=== PATIENT | male | born 1940 | race Caucasian/White ===

== ENCOUNTER 2018-10-07 22:20 | Inpatient (IN) | payer MEDICARE, OTHER ==
--- NOTE | 2018-10-07 22:53 | ED PDOC ---
Arrival/HPI - General Historian: Patient - History of Present Illness Narrative History of Present Illness (Text): 10/07/18 22:52 Patient is an 78-year-old M, family at bedside with permission of the Patient. Past medical history of previous CO (40 years ago), HTN, and Diabetes Mellitus (on Metformin), and arrhythmia (Patient's family states Patient was cardioverted in the past) who presents with syncope. Patient states that about 30 minutes prior to arrival to the ED, he was with his family when he felt light-headed, felt "wobbly" and that he was about to collapse. Patient states that his family caught him, and that he did not fall and/or hit his head. Patient also denies losing consciousness, and states he "never blacked out." Patient reports that he recently moved from [place], where he was being treated by a Lift Mechanic for his previous CO. Patient otherwise denies nausea, vomiting, fever, chills, chest pain, shortness of breath, numbness/tingling in lower extremities, weakness, and/or blurred vision. Time/Duration: Prior to Arrival, 1/2 hour Symptom Onset: Sudden Symptom Course: Improving <Isela Reynoso - Last Filed: 10/08/18 04:37> <Aditya Ceballos - Last Filed: 10/08/18 05:25> - General Chief Complaint: Syncope Past Medical History - Cardiac Hx Angina: Yes Hx CO: Yes (2017) Hx Hypertension: Yes Other/Comment: PSVT - Pulmonary Hx Respiratory Disorders: No - Neurological Hx Neurological Disorder: No - Renal Hx Renal Disorder: No - Endocrine/Metabolic Hx Diabetes Mellitus Type 2: Yes - Hematological/Oncological Hx Blood Disorders: No - Integumentary Hx Dermatological Disorder: No - Musculoskeletal/Rheumatological Hx Musculoskeletal Disorders: No - Gastrointestinal Hx Gastrointestinal Disorders: No - Genitourinary/Gynecological Hx Genitourinary Disorders: No - Psychiatric Hx Psychophysiologic Disorder: No Hx Substance Use: No - Surgical History Other/Comment: Back sx 30 years ago for lump removal. Skin sx 5 years ago d/t sunburn - Anesthesia Hx Anesthesia: Yes <Isela Reynoso - Last Filed: 10/08/18 04:37> Family/Social History Family/Social History: Unknown Family HX Smoking Status: Former Smoker Hx Alcohol Use: No Hx Substance Use: No <Isela Reynoso - Last Filed: 10/08/18 04:37> Allergies/Home Meds <Isela Reynoso - Last Filed: 10/08/18 04:37> <Aditya Ceballos - Last Filed: 10/08/18 05:25> Allergies/Adverse Reactions: Allergies atorvastatin [From Lipitor] Allergy (Verified 10/07/18 22:22) RASH Home Medications: Home Meds Medication Instructions Recorded Confirmed Carvedilol [Coreg] 1 tab PO DAILY 10/08/18 10/08/18 Furosemide [Lasix] 1 tab PO DAILY 10/08/18 10/08/18 Pantoprazole Sodium [Protonix] 1 tab PO QAM 10/08/18 10/08/18 Pravastatin Sodium [Pravachol] 1 tab PO DAILY 10/08/18 10/08/18 RX: Losartan [Cozaar] 1 tab PO DAILY 10/08/18 10/08/18 RX: MetFORMIN ER [Glucophage XR] 1 tab PO DAILY 10/08/18 10/08/18 Physical Exam Vital Signs Reviewed: Yes Vital Signs Temp Pulse Resp BP Pulse Ox 10/07/18 22:28 97.5 F L 147 H 19 106/82 96 Temperature: Afebrile Blood Pressure: Normal Pulse: Tachycardic Respiratory Rate: Normal Appearance: Positive for: Comfortable Mental Status: Positive for: Alert and Oriented X 3 - Systems Exam Head: Present: Atraumatic, Normocephalic Pupils: Present: PERRL Extroacular Muscles: Present: EOMI Conjunctiva: Present: Normal Mouth: Present: Moist Mucous Membranes Neck: Present: Normal Range of Motion Respiratory/Chest: Present: Clear to Auscultation, Good Air Exchange. No: Respiratory Distress, Accessory Muscle Use Cardiovascular: Present: Normal S1, S2, Irregular Rhythm, Tachycardic Abdomen: Present: Normal Bowel Sounds. No: Tenderness, Distention, Peritoneal Signs Upper Extremity: Present: Normal Inspection. No: Cyanosis, Edema Lower Extremity: Present: Normal Inspection Neurological: Present: GCS=15, CN II-XII Intact, Speech Normal Skin: Present: Warm, Dry, Normal Color. No: Rashes Psychiatric: Present: Alert, Oriented x 3, Normal Insight, Normal Concentration <Isela Reynoso - Last Filed: 10/08/18 04:37> Vital Signs Temp Pulse Resp BP Pulse Ox 10/07/18 22:28 97.5 F L 147 H 19 106/82 96 <Aditya Ceballos - Last Filed: 10/08/18 05:25> Medical Decision Making ED Course and Treatment: 10/08/18 00:48 IMPRESSION Patient is an 78-year-old M with past medical history of previous CO (40 years ago), HTN, arrhythmia (Patient states he was cardioverted in the past) and Diabetes Mellitus (on Metformin) who presents with syncope. ASSESSMENT / PLAN Tachycardia / ACS Rule-out / PE rule-out - Troponin x1 negative - CXR unremarkable for active disease (read by me); pending official report - EKG obtained, abnormal, tachycardia Meds given while in ED: Cardizem 10mg IVP STAT Cardizem 10mg IVP STAT (second dose) Cardizem drip started Lopressor 5mg IVP Amiodarone - D-Dimer w.n.l - CTA Mild aneurysmal ascending aorta measuring 4.1 cm. Normal enhancement of the main pulmonary artery and right and left pulmonary arteries. Normal enhancement of the bilateral peripheral pulmonary arteries. There is no demonstrated pulmonary embolism. Normal thoracic aorta and visualized great vessels. There is no demonstrated aortic dissection. Moderately enlarged heart and normal pericardium. Normal mediastinum. Normal hilar regions. Normal visualized trachea and bronchi. Mild central pulmonary venous congestion. Normal pleura. Normal chest wall structures. Moderate diffuse spondylosis. Normal visualized upper abdomen. 10/08/18 02:32 IMPRESSION: No demonstrated pulmonary embolism or arterial dissection. Cardiomegaly. Mild central pulmonary venous congestion. Bilateral basilar atelectatic/hypoventilatory pulmonary changes. - PT/PTT w.n.l - CBC w.n.l - CMP w.n.l - Lab Interpretations I have reviewed the lab results: Yes - RAD Interpretation Radiology Orders: 10/07/18 22:46 CHEST PORTABLE [RAD] Stat - Medication Orders Current Medication Orders: Sodium Chloride (Sodium Chloride 0.9%) 100 mls @ 150 mls/hr IV .Q40M [facility] <Isela Reynoso - Last Filed: 10/08/18 04:37> ED Course and Treatment: Patient Seen with Resident: In agreement with resident note which contains more details about the patient. Patient seen and evaluated with resident. Came up with plan and treatment together. case d/w dr chapman plant operations manager will start amiodorone Pt, whose past medical history includes CO, hypertension, diabetes, who presented for syncope. 10/08/18 00:40 CTA Chest: Mild aneurysmal ascending aorta measuring 4.1 cm. Normal enhancement of the main pulmonary artery and right and left pulmonary arteries. Normal enhancement of the bilateral peripheral pulmonary arteries. There is no demonstrated pulmonary embolism. Normal thoracic aorta and visualized great vessels. There is no demonstrated aortic dissection. Moderately enlarged heart and normal pericardium. Normal mediastinum. Normal hilar regions. Normal visualized trachea and bronchi. Mild central pulmonary venous congestion. Normal pleura. Normal chest wall structures. Moderate diffuse spondylosis. Normal visualized upper abdomen. IMPRESSION: No demonstrated pulmonary embolism or arterial dissection. Cardiomegaly. Mild central pulmonary venous congestion. Bilateral basilar atelectatic/hypoventilatory pulmonary changes. Electronically signed on Oct 08, 2018 12:39:45 AM EST by: Christa Marvin M.D., Certified by [employer], MSK, Neuroradiology 10/08/18 05:23 - Lab Interpretations Lab Results: Troponin I < 0.01 ng/mL 10/07/18 22:56 Total Bilirubin 0.3 mg/dL (0.2-1.3) 10/07/18 22:56 AST 25 U/L (17-59) 10/07/18 22:56 ALT 33 U/L (7-56) 10/07/18 22:56 Alkaline Phosphatase 57 U/L (38-126) 10/07/18 22:56 Total Protein 7.6 g/dL (5.8-8.3) 10/07/18 22:56 Albumin 4.3 g/dL (3.0-4.8) 10/07/18 22:56 Globulin 3.3 gm/dL 10/07/18 22:56 Albumin/Globulin Ratio 1.3 (1.1-1.8) 10/07/18 22:56 I have reviewed the lab results: Yes - RAD Interpretation Radiology Orders: 10/07/18 22:46 CHEST PORTABLE [RAD] Stat Engine Dispatcher: Radiologist - EKG Interpretation Interpreted by ED Physician: Yes Type: 12 lead EKG - Medication Orders Current Medication Orders: Sodium Chloride (Sodium Chloride 0.9%) 1,000 mls @ 150 mls/hr IV .Q6H40M [facility] Last Admin: 10/07/18 23:04 Dose: 150 mls/hr eMAR Start Stop Document 10/07/18 23:04 EB (Rec: 10/07/18 23:05 [place] [facility] [id number] Intravenous Solution Start Date 10/07/18 Start Time 23:05 End Date 10/08/18 End time 05:45 Total Infusion Time 400 <Aditya Ceballos - Last Filed: 10/08/18 05:25> - PA / PLEATER / Resident Statement / has reviewed & agrees with the documentation as recorded. / has examined the patient and agrees with the treatment plan. <Aditya Ceballos - Last Filed: 10/08/18 05:25> Disposition/Present on Arrival - Present on Arrival Any Indicators Present on Arrival: Yes History of DVT/PE: No History of Uncontrolled Diabetes: No Urinary Catheter: No History of Decub. Ulcer: No History Surgical Site Infection Following: None - Disposition Have Diagnosis and Disposition been Completed?: Yes Disposition Time: 03:30 (Persistent; H/O SVT) Patient Plan: ICU <Isela Reynoso - Last Filed: 10/08/18 04:37> - Present on Arrival Any Indicators Present on Arrival: No - Disposition Have Diagnosis and Disposition been Completed?: Yes <Aditya Ceballos - Last Filed: 10/08/18 05:25> - Disposition Diagnosis: Tachycardia Disposition: HOSPITALIZED Patient Problems: Current Active Problems Problem Status Onset Tachycardia Acute Condition: CRITICAL
[2018-10-07] MEDS ORDERED: Sodium Chloride 0.9% 1,000 ML IV SCH (23:00)
[2018-10-07 23:03] LABS: BASO # 0.08 K/mm3 (0.0-2.0); BASO % 0.8 % (0.0-3.0); EOS # 0.2 (0.0-0.7); EOS % 2.4 % (1.5-5.0); GRAN # 5.39 (1.4-6.5); GRAN % 53.8 % (50.0-68.0); HEMOGLOBIN 13.9 g/dL (14.0-18.0); LYMPH # 3.2 (1.2-3.4); LYMPH % 32.2 % (22.0-35.0); MEAN CELL VOLUME 87.4 fl (80.0-105.0); MEAN CORPUSCULAR HEMOGLOBIN 29.1 pg (25.0-35.0); MEAN CORPUSCULAR HGB CONC 33.3 g/dl (31.0-37.0); MEAN PLATELET VOLUME 9.4 fl (7.0-11.0); MONO # 1.1 (0.1-0.6); MONO % 10.8 % (1.0-6.0); RBC 4.77 10^6/uL (3.5-6.1)
[2018-10-07 23:13] LABS: ALB/GLOB RATIO 1.3 (1.1-1.8); ALBUMIN 4.3 g/dL (3.0-4.8); ALT/SGPT 33 U/L (7-56); AST/SGOT 25 U/L (17-59); BLOOD UREA NITROGEN 19 mg/dL (7-21); CALCIUM 9.3 mg/dL (8.4-10.5); GFR NON-AFRICAN AMERICAN > 60
[2018-10-07 23:23] LABS: TROPONIN I < 0.01 ng/mL
[2018-10-07] MEDS ORDERED: Iohexol 350 MG/100 ML VIAL ONE (23:57)
[2018-10-08 00:09] LABS: D DIMER < 200 ng/mlDDU (0-243); INR 0.92; PARTIAL THROMBOPLASTIN TIME 26.2 Seconds (25.1-36.5); PROTHROMBIN TIME 10.5 SECONDS (9.4-12.5)
[2018-10-08] MEDS ORDERED: diltiaZEM IVPB 100mg in NS 100 ML IV PRN (00:35)
[2018-10-08] MEDS ORDERED: Metoprolol 1 mg/ml Inj IVP ONE (01:16)
[2018-10-08] MEDS ORDERED: Amiodarone 150 mg/D5W 100 ml 150 MG/100 ML BAG IVPB ONE ×2 (01:54→08:27)
[2018-10-08] MEDS ORDERED: Amiodarone 360 mg/D5W 200 ml 360 MG/200 ML BAG IV SCH ×2 (02:30→08:30)
--- NOTE | 2018-10-08 03:47 | CP.PCM.CON ---
<Kwan Huffman - Last Filed: 10/08/18 04:04> History of Present Illness - History of Present Illness History of Present Illness: PGY-2 ICU consult note for Dr Wheat Mr France is a 78 year male with a PMHx of SVT requiring cardioversion (08/2017), NIDM2, HTN, HLD, SD 30 years ago, LE edema who presents to the ED for pre-syncope. His daughter and grand-daughter were at bedside. He was at a [employer] alliance party late last evening where he got up to go to the bathroom - however he felt "whoozy" and had to immediately sit down on the floor. He stated he felt palpitations. He was given some orange juice as family members were concerned his symptoms could be related to his diabetes. EMS was called and he was brought to our ER and found to have a heart rate in the 140s. He denied chest pain, LOC, dizziness, room-spinning sensation, fever, GI symptoms. PMHx: SVT requiring cardioversion (08/2017), NIDM2, HTN, HLD, SD 30 years ago, LE edema PSHx: denies Allergies: atorvastatin - body cramps Home Meds: metformin 1000mg po bid, dilacor xr 180mg po qd, coreg 25mg po bid, lasix 20mg po qd, pravastatin 20mg po hs, protonix 40mg po qd, losartan 50mg po qd SocialHx: 10 pack year smoking hx - no longer smoking, no alcohol use, no illicits, lives with , recently moved form [place] FamHx: unknown Review of Systems - Review of Systems All systems: reviewed and no additional remarkable complaints except (as stated in HPI) Past Patient History - Past Social History Smoking Status: Former Smoker - CARDIAC Hx Angina: Yes Hx Heart Attack: Yes (2016) Hx Hypertension: Yes Other/Comment: PSVT - PULMONARY Hx Respiratory Disorders: No - NEUROLOGICAL Hx Neurological Disorder: No - RENAL Hx Chronic Kidney Disease: No - ENDOCRINE/METABOLIC Hx Diabetes Mellitus Type 2: Yes - HEMATOLOGICAL/ONCOLOGICAL Hx Blood Disorders: No - INTEGUMENTARY Hx Dermatological Problems: No - MUSCULOSKELETAL/RHEUMATOLOGICAL Hx Musculoskeletal Disorders: No - GASTROINTESTINAL Hx Gastrointestinal Disorders: No - GENITOURINARY/GYNECOLOGICAL Hx Genitourinary Disorders: No - PSYCHIATRIC Hx Psychophysiologic Disorder: No Hx Substance Use: No - SURGICAL HISTORY Other/Comment: Back sx 30 years ago for lump removal. Skin sx 5 years ago d/t sunburn - ANESTHESIA Hx Anesthesia: Yes Meds Allergies/Adverse Reactions: Allergies Allergy/AdvReac Type Severity Reaction Status Date / Time atorvastatin [From Lipitor] Allergy RASH Verified 10/07/18 22:22 - Medications Medications: Current Medications Sodium Chloride (Sodium Chloride 0.9%) 1,000 mls @ 150 mls/hr IV .Q6H40M [facility] Last Admin: 10/07/18 23:04 Dose: 150 mls/hr Physical Exam - Constitutional Appears: Well, Non-toxic, No Acute Distress - Head Exam Head Exam: ATRAUMATIC, NORMAL INSPECTION - Eye Exam Eye Exam: EOMI, Normal appearance, PERRL. absent: Scleral icterus - ENT Exam ENT Exam: Mucous Membranes Moist - Respiratory Exam Respiratory Exam: Clear to Auscultation Bilateral, NORMAL BREATHING PATTERN. absent: Rales, Rhonchi, Wheezes - Cardiovascular Exam Cardiovascular Exam: Tachycardia, REGULAR RHYTHM, +S1, +S2. absent: JVD, Systolic Murmur - GI/Abdominal Exam GI & Abdominal Exam: Normal Bowel Sounds, Soft. absent: Distended, Firm, Tenderness - Extremities Exam Extremities exam: Positive for: normal capillary refill, normal inspection, pedal edema, pedal pulses present Additional comments: 1+ b/l - Neurological Exam Neurological exam: Alert, Oriented x3 - Psychiatric Exam Psychiatric exam: Normal Affect, Normal Mood - Skin Skin Exam: Intact, Normal Color, Warm Results - Vital Signs Recent Vital Signs: Last Vital Signs Temp 98.1 F 10/08/18 03:16 Pulse 149 H 10/08/18 03:23 Resp 20 10/08/18 03:23 BP 103/63 10/08/18 03:23 Pulse Ox 95 10/08/18 03:23 - Labs Result Diagrams: 10/07/18 22:56 10/07/18 22:56 Labs: Laboratory Results - last 24 hr 10/07/18 10/07/18 10/07/18 22:56 22:56 23:27 WBC 10.0 RBC 4.77 Hgb 13.9 L Hct 41.7 L MCV 87.4 MCH 29.1 MCHC 33.3 RDW 13.0 Plt Count 222 MPV 9.4 Gran % 53.8 Lymph % (Auto) 32.2 [place] % (Auto) 10.8 H Eos % (Auto) 2.4 Baso % (Auto) 0.8 Gran # 5.39 Lymph # (Auto) 3.2 [place] # (Auto) 1.1 H Eos # (Auto) 0.2 Baso # (Auto) 0.08 PT 10.5 INR 0.92 APTT 26.2 D-Dimer, Quantitative < 200 Sodium 138 Potassium 4.5 Chloride 103 Carbon Dioxide 22 Anion Gap 17 BUN 19 Creatinine 0.9 Est GFR ( Amer) > 60 Est GFR (Non-Af Amer) > 60 Random Glucose 176 H Calcium 9.3 Magnesium 1.9 Total Bilirubin 0.3 AST 25 ALT 33 Alkaline Phosphatase 57 Lactate Dehydrogenase 353 Total Creatine Kinase 42 Troponin I < 0.01 Total Protein 7.6 Albumin 4.3 Globulin 3.3 Albumin/Globulin Ratio 1.3 Assessment & Plan - Assessment and Plan (Free Text) Plan: Mr [place] is a 78 year male with a PMHx of SVT requiring cardioversion ( 7), NIDM2, HTN, HLD, SD 30 years ago, LE edema who presents to the ED for pre- syncope: Cardiovascular -(1) SVT with HR in 140s who is hemodynamically stable; (2) cardiomegaly as seen on CTA 10/08/18 -In ED given: cardizem 10mg ivp x2, amio 150mg ivp once, lopressor 5mg ivp once, adenosine 6mg ivp once, attempted vagal massage * there was no improvement in HR -consult cardiology, Dr Cleary -holding off on cardioversion for now as patient is w/o symptoms and hemodynamically stable -troponin x1 negative, f/u echo, repeat ekg in AM, lipid panel, Hgba1c, probnp -d-dimer was negative - CTA was performed 10/08/18 which did not show PE -start 81mg po qd -hold home coreg, losartan and lasix due to mild hypotension (100s/70s) Endocrine -NIDD2 -glucose in 170s -f/u hgba1c -accuchecks achs with RISS -medium coverage -hold home metformin for now Pulmonary -mild central pulmonary venous congestion as seen on CTA 10/08/18 -no complaints of difficulty breathing and saturating well on NC PPx -SCDs contraindicated 2/2 to 1+ pedal edema b/l Seen and discussed with Dr Wheat <Jose M Wheat - Last Filed: 10/08/18 06:31> Meds - Medications Medications: Current Medications Aspirin (Aspirin Chewable) 81 mg PO DAILY [facility] Dextrose (Dextrose 50% Inj) 0 ml IV STAT PRN; Protocol PRN Reason: Hypoglycemia Protocol Sodium Chloride (Sodium Chloride 0.9%) 1,000 mls @ 150 mls/hr IV .Q6H40M [facility] Last Admin: 10/07/18 23:04 Dose: 150 mls/hr Dextrose (Dextrose 5% In Water 1000 Ml) 1,000 mls @ 0 mls/hr IV .Q0M PRN; Protocol PRN Reason: Hypoglycemia Protocol Insulin Human Regular (Humulin R Med) 0 units SC ACHS [facility]; Protocol Results - Vital Signs Recent Vital Signs: Last Vital Signs Temp 98.5 F 10/08/18 04:10 Pulse 149 H 10/08/18 04:10 Resp 18 10/08/18 04:10 BP 103/63 10/08/18 03:43 Pulse Ox 95 10/08/18 03:43 - Labs Result Diagrams: 10/07/18 22:56 10/07/18 22:56 Labs: Laboratory Results - last 24 hr 10/07/18 10/07/18 10/07/18 22:56 22:56 23:27 WBC 10.0 RBC 4.77 Hgb 13.9 L Hct 41.7 L MCV 87.4 MCH 29.1 MCHC 33.3 RDW 13.0 Plt Count 222 MPV 9.4 Gran % 53.8 Lymph % (Auto) 32.2 [place] % (Auto) 10.8 H Eos % (Auto) 2.4 Baso % (Auto) 0.8 Gran # 5.39 Lymph # (Auto) 3.2 [place] # (Auto) 1.1 H Eos # (Auto) 0.2 Baso # (Auto) 0.08 PT 10.5 INR 0.92 APTT 26.2 D-Dimer, Quantitative < 200 Sodium 138 Potassium 4.5 Chloride 103 Carbon Dioxide 22 Anion Gap 17 BUN 19 Creatinine 0.9 Est GFR ( Amer) > 60 Est GFR (Non-Af Amer) > 60 Random Glucose 176 H Calcium 9.3 Magnesium 1.9 Total Bilirubin 0.3 AST 25 ALT 33 Alkaline Phosphatase 57 Lactate Dehydrogenase 353 Total Creatine Kinase 42 Troponin I < 0.01 Total Protein 7.6 Albumin 4.3 Globulin 3.3 Albumin/Globulin Ratio 1.3 Attending/Attestation - Attestation I have personally seen and examined this patient.: Yes I have fully participated in the care of the patient.: Yes I have reviewed all pertinent clinical information: Yes Notes (Text): Patient seen and examined with the resident, agree with above Symptoms with "whooziness" while at [employer] today and lethargy Noted to have monomorphic wide complex tachycardia; No hypotension/AMS/shock/chest pain/acute heart failure Vagal maneuvers without relief. Administered Adenosine 6mg IV x1 dose with improvement of HR from 146 --> 113 will continue to monitor hemodynamics in the ICU setting with a Cardiology evaluation Plan of care made aware to the patient and has family members at bedside Further diagnostics and/or intervention as hospital course progresses.
[2018-10-08] MEDS ORDERED: Dextrose 50% SYRINGE Inj (50 ml) IV PRN (03:48)
[2018-10-08 05:30] VITALS: BMI 21.7
[2018-10-08 07:07] LABS: BASO # 0.04 K/mm3 (0.0-2.0); BASO % 0.4 % (0.0-3.0); EOS # 0.1 (0.0-0.7); EOS % 1.3 % (1.5-5.0); GRAN # 5.67 (1.4-6.5); GRAN % 59.1 % (50.0-68.0); HEMOGLOBIN 13.4 g/dL (14.0-18.0); LYMPH # 2.7 (1.2-3.4); LYMPH % 28.5 % (22.0-35.0); MEAN CELL VOLUME 86.7 fl (80.0-105.0); MEAN CORPUSCULAR HEMOGLOBIN 28.7 pg (25.0-35.0); MEAN CORPUSCULAR HGB CONC 33.1 g/dl (31.0-37.0); MEAN PLATELET VOLUME 9.3 fl (7.0-11.0); MONO % 10.7 % (1.0-6.0); RBC 4.67 10^6/uL (3.5-6.1); RED CELL DISTRIBUTION WIDTH 13.1 % (11.5-14.5); WHITE BLOOD COUNT 9.6 10^3/uL (4.5-11.0)
[2018-10-08 07:17] LABS: ALB/GLOB RATIO 1.2 (1.1-1.8); ALBUMIN 3.8 g/dL (3.0-4.8); ALT/SGPT 26 U/L (7-56); AST/SGOT 24 U/L (17-59); BLOOD UREA NITROGEN 14 mg/dL (7-21); CALCIUM 8.5 mg/dL (8.4-10.5); GFR NON-AFRICAN AMERICAN > 60; HDL CHOLESTEROL 46 mg/dL (29-60)
[2018-10-08 07:23] LABS: B-TYPE NATRIURETIC PEPTIDE 1530 pg/mL (0-450)
[2018-10-08 07:26] LABS: LDL CHOLESTEROL 74 mg/dL (0-129)
[2018-10-08] MEDS ORDERED: Digoxin 500 mcg/2ml (0.5 mg/2ml) Inj IVP STA (07:41)
[2018-10-08 07:54] VITALS: PULSE 152
[2018-10-08] MEDS: Insulin Reg-MEDIUM-Coverage SC SCH ×4 (08:47→22:17)
--- NOTE | 2018-10-08 09:27 | CT ---
Date of service: 10/08/2018 PROCEDURE: CT Chest with contrast (Pulmonary Angiogram) HISTORY: rule-out PE COMPARISON: None available. TECHNIQUE: Axial computed tomography images were obtained of the chest in the pulmonary arterial phase of enhancement. Coronal and sagittal reformatted images were created and reviewed. Intravenous contrast dose: 96 mL of Omni 350 Radiation dose: Total exam DLP = 498.34 mGy-cm. This CT exam was performed using one or more of the following dose reduction techniques: Automated exposure control, adjustment of the mA and/or kV according to patient size, and/or use of iterative reconstruction technique. FINDINGS: PULMONARY ARTERIES: Unremarkable. No pulmonary embolism. AORTA: No acute findings. No thoracic aortic aneurysm. Aortic calcifications LUNGS: Minimal interstitial changes PLEURAL SPACES: Unremarkable. No effusion or pneumothorax. HEART: Unremarkable. No cardiomegaly. No significant pericardial effusion. LYMPH NODES: No lymphadenopathy. BONES, CHEST WALL: Unremarkable. No fracture or destructive lesion OTHER FINDINGS: The report concurs with the preliminary [facility] report IMPRESSION: Unremarkable CT pulmonary angiogram. No pulmonary embolus.
[2018-10-08] MEDS ORDERED: Midazolam 2 MG/2 ML VIAL IVP ONE ×2 (09:47→10:47)
--- NOTE | 2018-10-08 09:54 | CARD ---
APPROVED REPORT Date of service: 10/07/2018 EKG Measurement Heart [id number] <Conclusion> Wide QRS tachycardia Probable atrial flutter with 2:1 onduction Nonspecific intraventricular block Possible inferior infarct, age undetermined Marked ST abnormality, possible anterior subendocardial injury Abnormal ECG
--- NOTE | 2018-10-08 10:22 | RAD ---
Date of service: 10/07/2018 HISTORY: syncope COMPARISON: No prior. FINDINGS: LUNGS: No active pulmonary disease. PLEURA: No significant pleural effusion identified, no pneumothorax apparent. CARDIOVASCULAR: Aortic calcification Normal cardiac size. No pulmonary vascular congestion. OSSEOUS STRUCTURES: No significant abnormalities. VISUALIZED UPPER ABDOMEN: Normal. OTHER FINDINGS: None. IMPRESSION: No active disease.
[2018-10-08] MEDS ORDERED: Midazolam 2 MG/2 ML VIAL IVP STA (10:37)
[2018-10-08] MEDS ORDERED: Sodium Chloride 0.9% 500 ML IV STA (11:15)
--- NOTE | 2018-10-08 12:10 | CP.CCUPN ---
<Boni Pace - Last Filed: 10/08/18 12:06> CCU Subjective - Physician Review Subjective (Free Text): 10/08/18 12:06 MICHELLE Pelaez Critical Care Progress Note Patient seen and examined at bedside this morning. Patient denied CP, SOB, abdominal pain, back pain and palpitations. HR continued to be elevated in the 140s despite amiodarone drip. Patient subsequently sedated and cardioverted with sustained reduction in heart rate. Will monitor in the ICU for 24 hours. CCU Objective - Vital Signs / Intake & Output Intake and Output (Last 8hrs): Intake & Output 10/07/18 10/08/18 10/08/18 22:59 06:59 14:59 Intake Total 600 Balance 600 Weight 145 lb 147 lb 8 oz Intake: IV 300 Right Wrist 300 Other 300 Other: Voiding Method Incontinent # Voids Urine, Voided 3 # Bowel Movements 0 - Physical Exam Head: Positive for: Atraumatic, Normocephalic Pupils: Positive for: PERRL Extroacular Muscles: Positive for: EOMI Conjunctiva: Positive for: Normal Mouth: Positive for: Moist Mucous Membranes Neck: Positive for: Normal Range of Motion Respiratory/Chest: Positive for: Clear to Auscultation, Good Air Exchange. Negative for: Respiratory Distress, Accessory Muscle Use Cardiovascular: Positive for: Normal S1, S2, Tachycardic Abdomen: Positive for: Normal Bowel Sounds. Negative for: Tenderness, Distent ion, Peritoneal Signs Upper Extremity: Positive for: Normal Inspection. Negative for: Cyanosis, Edema Lower Extremity: Positive for: Normal Inspection Neurological: Positive for: GCS=15, CN II-XII Intact, Speech Normal Skin: Positive for: Warm, Dry, Normal Color. Negative for: Rashes Psychiatric: Positive for: Alert, Oriented x 3 - Medications Active Medications: Active Medications Generic Name Dose Route Start Last Admin Trade Name Freq PRN Reason Stop Dose Admin Apixaban 5 mg 10/08/18 11:15 Eliquis PO BID [facility] Protocol Aspirin 81 mg 10/08/18 10:00 Aspirin Chewable PO DAILY [facility] Dextrose 0 ml 10/08/18 03:48 Dextrose 50% Inj IV STAT PRN Hypoglycemia Protocol Protocol Dextrose 1,000 mls @ 0 mls/hr 10/08/18 03:48 Dextrose 5% In Water 1000 Ml IV .Q0M PRN Hypoglycemia Protocol Protocol Per Protocol Insulin Human Regular 0 units 10/08/18 07:30 10/08/18 08:47 Humulin R Med SC Not Given ACHS [facility] Protocol - Patient Studies Lab Studies: Lab Studies 10/08/18 10/08/18 10/08/18 Range/Units 08:45 07:40 06:30 WBC (4.5-11.0) 10^3/uL RBC (3.5-6.1) 10^6/uL Hgb (14.0-18.0) g/dL Hct (42.0-52.0) % MCV (80.0-105.0) fl MCH (25.0-35.0) pg MCHC (31.0-37.0) g/dl RDW (11.5-14.5) % Plt Count (120.0-450.0) 10^3/uL MPV (7.0-11.0) fl Gran % (50.0-68.0) % Lymph % (Auto) (22.0-35.0) % [place] % (Auto) (1.0-6.0) % Eos % (Auto) (1.5-5.0) % Baso % (Auto) (0.0-3.0) % Gran # (1.4-6.5) Lymph # (Auto) (1.2-3.4) [place] # (Auto) (0.1-0.6) Eos # (Auto) (0.0-0.7) Baso # (Auto) (0.0-2.0) K/mm3 PT (9.4-12.5) SECONDS INR APTT (25.1-36.5) Seconds D-Dimer, Quantitative (0-243) ng/mlDDU Sodium 140 (132-148) mmol/L Potassium 3.9 (3.6-5.0) mmol/L Chloride 108 H (98-107) mmol/L Carbon Dioxide 23 (21-33) mmol/L Anion Gap 14 (10-20) BUN 14 (7-21) mg/dL Creatinine 0.7 L (0.8-1.5) mg/dl Est GFR ( Amer) > 60 Est GFR (Non-Af Amer) > 60 POC Glucose (mg/dL) 151 H (65-110) mg/dL Random Glucose 135 H (70-110) mg/dL Calcium 8.5 (8.4-10.5) mg/dL Magnesium (1.7-2.2) mg/dL Total Bilirubin 0.2 (0.2-1.3) mg/dL AST 24 (17-59) U/L ALT 26 (7-56) U/L Alkaline Phosphatase 54 (38-126) U/L Lactate Dehydrogenase (333-699) U/L Total Creatine Kinase (35-230) U/L Troponin I 0.03 D ng/mL NT-Pro-B Natriuret Pep 1530 H (0-450) pg/mL Total Protein 6.8 (5.8-8.3) g/dL Albumin 3.8 (3.0-4.8) g/dL Globulin 3.0 gm/dL Albumin/Globulin Ratio 1.2 (1.1-1.8) Triglycerides 66 (35-160) mg/dL Cholesterol 131 (130-200) mg/dL LDL Cholesterol Direct 74 (0-129) mg/dL HDL Cholesterol 46 (29-60) mg/dL 10/08/18 10/07/18 10/07/18 Range/Units 06:30 23:27 22:56 WBC 9.6 10.0 (4.5-11.0) 10^3/uL RBC 4.67 4.77 (3.5-6.1) 10^6/uL Hgb 13.4 L 13.9 L (14.0-18.0) g/dL Hct 40.5 L 41.7 L (42.0-52.0) % MCV 86.7 87.4 (80.0-105.0) fl MCH 28.7 29.1 (25.0-35.0) pg MCHC 33.1 33.3 (31.0-37.0) g/dl RDW 13.1 13.0 (11.5-14.5) % Plt Count 219 222 (120.0-450.0) 10^3/uL MPV 9.3 9.4 (7.0-11.0) fl Gran % 59.1 53.8 (50.0-68.0) % Lymph % (Auto) 28.5 32.2 (22.0-35.0) % [place] % (Auto) 10.7 H 10.8 H (1.0-6.0) % Eos % (Auto) 1.3 L 2.4 (1.5-5.0) % Baso % (Auto) 0.4 0.8 (0.0-3.0) % Gran # 5.67 5.39 (1.4-6.5) Lymph # (Auto) 2.7 3.2 (1.2-3.4) [place] # (Auto) 1.0 H 1.1 H (0.1-0.6) Eos # (Auto) 0.1 0.2 (0.0-0.7) Baso # (Auto) 0.04 0.08 (0.0-2.0) K/mm3 PT 10.5 (9.4-12.5) SECONDS INR 0.92 APTT 26.2 (25.1-36.5) Seconds D-Dimer, Quantitative < 200 (0-243) ng/mlDDU Sodium (132-148) mmol/L Potassium (3.6-5.0) mmol/L Chloride (98-107) mmol/L Carbon Dioxide (21-33) mmol/L Anion Gap (10-20) BUN (7-21) mg/dL Creatinine (0.8-1.5) mg/dl Est GFR ( Amer) Est GFR (Non-Af Amer) POC Glucose (mg/dL) (65-110) mg/dL Random Glucose (70-110) mg/dL Calcium (8.4-10.5) mg/dL Magnesium (1.7-2.2) mg/dL Total Bilirubin (0.2-1.3) mg/dL AST (17-59) U/L ALT (7-56) U/L Alkaline Phosphatase (38-126) U/L Lactate Dehydrogenase (333-699) U/L Total Creatine Kinase (35-230) U/L Troponin I ng/mL NT-Pro-B Natriuret Pep (0-450) pg/mL Total Protein (5.8-8.3) g/dL Albumin (3.0-4.8) g/dL Globulin gm/dL Albumin/Globulin Ratio (1.1-1.8) Triglycerides (35-160) mg/dL Cholesterol (130-200) mg/dL LDL Cholesterol Direct (0-129) mg/dL HDL Cholesterol (29-60) mg/dL 10/07/18 Range/Units 22:56 WBC (4.5-11.0) 10^3/uL RBC (3.5-6.1) 10^6/uL Hgb (14.0-18.0) g/dL Hct (42.0-52.0) % MCV (80.0-105.0) fl MCH (25.0-35.0) pg MCHC (31.0-37.0) g/dl RDW (11.5-14.5) % Plt Count (120.0-450.0) 10^3/uL MPV (7.0-11.0) fl Gran % (50.0-68.0) % Lymph % (Auto) (22.0-35.0) % [place] % (Auto) (1.0-6.0) % Eos % (Auto) (1.5-5.0) % Baso % (Auto) (0.0-3.0) % Gran # (1.4-6.5) Lymph # (Auto) (1.2-3.4) [place] # (Auto) (0.1-0.6) Eos # (Auto) (0.0-0.7) Baso # (Auto) (0.0-2.0) K/mm3 PT (9.4-12.5) SECONDS INR APTT (25.1-36.5) Seconds D-Dimer, Quantitative (0-243) ng/mlDDU Sodium 138 (132-148) mmol/L Potassium 4.5 (3.6-5.0) mmol/L Chloride 103 (98-107) mmol/L Carbon Dioxide 22 (21-33) mmol/L Anion Gap 17 (10-20) BUN 19 (7-21) mg/dL Creatinine 0.9 (0.8-1.5) mg/dl Est GFR ( Amer) > 60 Est GFR (Non-Af Amer) > 60 POC Glucose (mg/dL) (65-110) mg/dL Random Glucose 176 H (70-110) mg/dL Calcium 9.3 (8.4-10.5) mg/dL Magnesium 1.9 (1.7-2.2) mg/dL Total Bilirubin 0.3 (0.2-1.3) mg/dL AST 25 (17-59) U/L ALT 33 (7-56) U/L Alkaline Phosphatase 57 (38-126) U/L Lactate Dehydrogenase 353 (333-699) U/L Total Creatine Kinase 42 (35-230) U/L Troponin I < 0.01 ng/mL NT-Pro-B Natriuret Pep (0-450) pg/mL Total Protein 7.6 (5.8-8.3) g/dL Albumin 4.3 (3.0-4.8) g/dL Globulin 3.3 gm/dL Albumin/Globulin Ratio 1.3 (1.1-1.8) Triglycerides (35-160) mg/dL Cholesterol (130-200) mg/dL LDL Cholesterol Direct (0-129) mg/dL HDL Cholesterol (29-60) mg/dL Laboratory Results - last 24 hr 10/07/18 10/07/18 10/07/18 22:56 22:56 23:27 WBC 10.0 RBC 4.77 Hgb 13.9 L Hct 41.7 L MCV 87.4 MCH 29.1 MCHC 33.3 RDW 13.0 Plt Count 222 MPV 9.4 Gran % 53.8 Lymph % (Auto) 32.2 [place] % (Auto) 10.8 H Eos % (Auto) 2.4 Baso % (Auto) 0.8 Gran # 5.39 Lymph # (Auto) 3.2 [place] # (Auto) 1.1 H Eos # (Auto) 0.2 Baso # (Auto) 0.08 PT 10.5 INR 0.92 APTT 26.2 D-Dimer, Quantitative < 200 Sodium 138 Potassium 4.5 Chloride 103 Carbon Dioxide 22 Anion Gap 17 BUN 19 Creatinine 0.9 Est GFR ( Amer) > 60 Est GFR (Non-Af Amer) > 60 POC Glucose (mg/dL) Random Glucose 176 H Calcium 9.3 Magnesium 1.9 Total Bilirubin 0.3 AST 25 ALT 33 Alkaline Phosphatase 57 Lactate Dehydrogenase 353 Total Creatine Kinase 42 Troponin I < 0.01 NT-Pro-B Natriuret Pep Total Protein 7.6 Albumin 4.3 Globulin 3.3 Albumin/Globulin Ratio 1.3 Triglycerides Cholesterol LDL Cholesterol Direct HDL Cholesterol 10/08/18 10/08/18 10/08/18 06:30 06:30 07:40 WBC 9.6 RBC 4.67 Hgb 13.4 L Hct 40.5 L MCV 86.7 MCH 28.7 MCHC 33.1 RDW 13.1 Plt Count 219 MPV 9.3 Gran % 59.1 Lymph % (Auto) 28.5 [place] % (Auto) 10.7 H Eos % (Auto) 1.3 L Baso % (Auto) 0.4 Gran # 5.67 Lymph # (Auto) 2.7 [place] # (Auto) 1.0 H Eos # (Auto) 0.1 Baso # (Auto) 0.04 PT INR APTT D-Dimer, Quantitative Sodium 140 Potassium 3.9 Chloride 108 H Carbon Dioxide 23 Anion Gap 14 BUN 14 Creatinine 0.7 L Est GFR ( Amer) > 60 Est GFR (Non-Af Amer) > 60 POC Glucose (mg/dL) Random Glucose 135 H Calcium 8.5 Magnesium Total Bilirubin 0.2 AST 24 ALT 26 Alkaline Phosphatase 54 Lactate Dehydrogenase Total Creatine Kinase Troponin I 0.03 D NT-Pro-B Natriuret Pep 1530 H Total Protein 6.8 Albumin 3.8 Globulin 3.0 Albumin/Globulin Ratio 1.2 Triglycerides 66 Cholesterol 131 LDL Cholesterol Direct 74 HDL Cholesterol 46 10/08/18 08:45 WBC RBC Hgb Hct MCV MCH MCHC RDW Plt Count MPV Gran % Lymph % (Auto) [place] % (Auto) Eos % (Auto) Baso % (Auto) Gran # Lymph # (Auto) [place] # (Auto) Eos # (Auto) Baso # (Auto) PT INR APTT D-Dimer, Quantitative Sodium Potassium Chloride Carbon Dioxide Anion Gap BUN Creatinine Est GFR ( Amer) Est GFR (Non-Af Amer) POC Glucose (mg/dL) 151 H Random Glucose Calcium Magnesium Total Bilirubin AST ALT Alkaline Phosphatase Lactate Dehydrogenase Total Creatine Kinase Troponin I NT-Pro-B Natriuret Pep Total Protein Albumin Globulin Albumin/Globulin Ratio Triglycerides Cholesterol LDL Cholesterol Direct HDL Cholesterol Radiology Impressions: Radiology Impressions Chest X-Ray 10/07/18 22:46 IMPRESSION: No active disease. Chest CT 10/07/18 23:44 IMPRESSION: Unremarkable CT pulmonary angiogram. No pulmonary embolus. EKG/Cardiology Studies: Cardiology / EKG Studies 10/07/18 22:46 ELECTROCARDIOGRAM Stat Comment: Reason For Exam: syncope 10/08/18 00:33 ELECTROCARDIOGRAM Stat Comment: Reason For Exam: 2nd EKG 10/08/18 08:00 EKG [ELECTROCARDIOGRAM] Routine Comment: Reason For Exam: svt Fingerstick Blood Sugar Results: 151 Critical Care Progress Note - Nutrition Nutrition: Nutrition Category Date Time Status Heart Healthy Diet [DIET] Diets 10/08/18 Lunch Ordered Assessment/Plan - Assessment and Plan (Free Text) Assessment: This is an 78 year male with a PMH of SVT requiring cardioversion (08/2017), NIDM2, HTN, HLD, PR 30 years ago, LE edema who presents to the ICU for management of atrial flutter with sustained HR in the 140's, s/p cardioversion 10/08/18. Plan: Neuro: -AO x3, moving extremities spontaneously past midline Cardiovascular Atrial flutter -patient hemodynmically stable with sustained elevation in HR despite amiodarone drip -patient was sedated with a total of 4mg of versed and 50 mics of fentanyl and subsequently cardioverted -HR is now in the 50's with stable BP -In ED given: cardizem 10mg ivp x2, amio 150mg ivp once, lopressor 5mg ivp once, adenosine 6mg ivp once, attempted vagal massage with no sustained reduction in HR -consult cardiology, Dr Cleary -troponin 0.01, 0.03, BNP 1530 -echo pending -lipid panel WNL -A1c, TSH pending -cotninue ASA, started on eliquis 5mg BID -hold home coreg, losartan and lasix due to mild hypotension (100s/70s) Lungs: -SaO2 >90% -supplementary O2 PRN -CXR 10/07/18 shows no active disease -CTA 10/07/18 did not show PE Renal: -maintain euvolemia -avoid nephrotoxic agents, hypochloremia -replace electrolytes as needed -BUN/Cr WNL, 14/0.7 Heme: -Hg today is 13.4, will monitor -DVT ppx with heparin 5k ID: -WBC is 9.6 today, afebrile -MRSA screen pending Endocrine -NIDD2 -f/u hgba1c -accuchecks achs with RISS -medium coverage -hold home metformin for now GI: -heat healthy diet -GI prophylaxis not indicated at this time Patient seen and case discussed with attending, Dr. Akins <Sean Akins - Last Filed: 10/08/18 13:21> CCU Objective - Vital Signs / Intake & Output Intake and Output (Last 8hrs): Intake & Output 10/07/18 10/08/18 10/08/18 22:59 06:59 14:59 Intake Total 600 Balance 600 Weight 145 lb 147 lb 8 oz Intake: IV 300 Right Wrist 300 Other 300 Other: Voiding Method Incontinent # Voids Urine, Voided 3 # Bowel Movements 0 - Medications Active Medications: Active Medications Generic Name Dose Route Start Last Admin Trade Name Freq PRN Reason Stop Dose Admin Apixaban 5 mg 10/08/18 11:15 Eliquis PO BID [facility] Protocol Aspirin 81 mg 10/08/18 10:00 Aspirin Chewable PO DAILY [facility] Dextrose 0 ml 10/08/18 03:48 Dextrose 50% Inj IV STAT PRN Hypoglycemia Protocol Protocol Dextrose 1,000 mls @ 0 mls/hr 10/08/18 03:48 Dextrose 5% In Water 1000 Ml IV .Q0M PRN Hypoglycemia Protocol Protocol Per Protocol Insulin Human Regular 0 units 10/08/18 07:30 10/08/18 12:33 Humulin R Med SC Not Given ACHS [facility] Protocol - Patient Studies Lab Studies: Lab Studies 10/08/18 10/08/18 10/08/18 Range/Units 08:45 07:40 06:30 WBC (4.5-11.0) 10^3/uL RBC (3.5-6.1) 10^6/uL Hgb (14.0-18.0) g/dL Hct (42.0-52.0) % MCV (80.0-105.0) fl MCH (25.0-35.0) pg MCHC (31.0-37.0) g/dl RDW (11.5-14.5) % Plt Count (120.0-450.0) 10^3/uL MPV (7.0-11.0) fl Gran % (50.0-68.0) % Lymph % (Auto) (22.0-35.0) % [place] % (Auto) (1.0-6.0) % Eos % (Auto) (1.5-5.0) % Baso % (Auto) (0.0-3.0) % Gran # (1.4-6.5) Lymph # (Auto) (1.2-3.4) [place] # (Auto) (0.1-0.6) Eos # (Auto) (0.0-0.7) Baso # (Auto) (0.0-2.0) K/mm3 PT (9.4-12.5) SECONDS INR APTT (25.1-36.5) Seconds D-Dimer, Quantitative (0-243) ng/mlDDU Sodium (132-148) mmol/L Potassium (3.6-5.0) mmol/L Chloride (98-107) mmol/L Carbon Dioxide (21-33) mmol/L Anion Gap (10-20) BUN (7-21) mg/dL Creatinine (0.8-1.5) mg/dl Est GFR ( Amer) Est GFR (Non-Af Amer) POC Glucose (mg/dL) 151 H (65-110) mg/dL Random Glucose (70-110) mg/dL Hemoglobin A1c 6.5 (4.2-6.5) % Calcium (8.4-10.5) mg/dL Magnesium (1.7-2.2) mg/dL Total Bilirubin (0.2-1.3) mg/dL AST (17-59) U/L ALT (7-56) U/L Alkaline Phosphatase (38-126) U/L Lactate Dehydrogenase (333-699) U/L Total Creatine Kinase (35-230) U/L Troponin I 0.03 D ng/mL NT-Pro-B Natriuret Pep (0-450) pg/mL Total Protein (5.8-8.3) g/dL Albumin (3.0-4.8) g/dL Globulin gm/dL Albumin/Globulin Ratio (1.1-1.8) Triglycerides (35-160) mg/dL Cholesterol (130-200) mg/dL LDL Cholesterol Direct (0-129) mg/dL HDL Cholesterol (29-60) mg/dL 10/08/18 10/08/18 10/07/18 Range/Units 06:30 06:30 23:27 WBC 9.6 (4.5-11.0) 10^3/uL RBC 4.67 (3.5-6.1) 10^6/uL Hgb 13.4 L (14.0-18.0) g/dL Hct 40.5 L (42.0-52.0) % MCV 86.7 (80.0-105.0) fl MCH 28.7 (25.0-35.0) pg MCHC 33.1 (31.0-37.0) g/dl RDW 13.1 (11.5-14.5) % Plt Count 219 (120.0-450.0) 10^3/uL MPV 9.3 (7.0-11.0) fl Gran % 59.1 (50.0-68.0) % Lymph % (Auto) 28.5 (22.0-35.0) % [place] % (Auto) 10.7 H (1.0-6.0) % Eos % (Auto) 1.3 L (1.5-5.0) % Baso % (Auto) 0.4 (0.0-3.0) % Gran # 5.67 (1.4-6.5) Lymph # (Auto) 2.7 (1.2-3.4) [place] # (Auto) 1.0 H (0.1-0.6) Eos # (Auto) 0.1 (0.0-0.7) Baso # (Auto) 0.04 (0.0-2.0) K/mm3 PT 10.5 (9.4-12.5) SECONDS INR 0.92 APTT 26.2 (25.1-36.5) Seconds D-Dimer, Quantitative < 200 (0-243) ng/mlDDU Sodium 140 (132-148) mmol/L Potassium 3.9 (3.6-5.0) mmol/L Chloride 108 H (98-107) mmol/L Carbon Dioxide 23 (21-33) mmol/L Anion Gap 14 (10-20) BUN 14 (7-21) mg/dL Creatinine 0.7 L (0.8-1.5) mg/dl Est GFR ( Amer) > 60 Est GFR (Non-Af Amer) > 60 POC Glucose (mg/dL) (65-110) mg/dL Random Glucose 135 H (70-110) mg/dL Hemoglobin A1c (4.2-6.5) % Calcium 8.5 (8.4-10.5) mg/dL Magnesium (1.7-2.2) mg/dL Total Bilirubin 0.2 (0.2-1.3) mg/dL AST 24 (17-59) U/L ALT 26 (7-56) U/L Alkaline Phosphatase 54 (38-126) U/L Lactate Dehydrogenase (333-699) U/L Total Creatine Kinase (35-230) U/L Troponin I ng/mL NT-Pro-B Natriuret Pep 1530 H (0-450) pg/mL Total Protein 6.8 (5.8-8.3) g/dL Albumin 3.8 (3.0-4.8) g/dL Globulin 3.0 gm/dL Albumin/Globulin Ratio 1.2 (1.1-1.8) Triglycerides 66 (35-160) mg/dL Cholesterol 131 (130-200) mg/dL LDL Cholesterol Direct 74 (0-129) mg/dL HDL Cholesterol 46 (29-60) mg/dL 10/07/18 10/07/18 Range/Units 22:56 22:56 WBC 10.0 (4.5-11.0) 10^3/uL RBC 4.77 (3.5-6.1) 10^6/uL Hgb 13.9 L (14.0-18.0) g/dL Hct 41.7 L (42.0-52.0) % MCV 87.4 (80.0-105.0) fl MCH 29.1 (25.0-35.0) pg MCHC 33.3 (31.0-37.0) g/dl RDW 13.0 (11.5-14.5) % Plt Count 222 (120.0-450.0) 10^3/uL MPV 9.4 (7.0-11.0) fl Gran % 53.8 (50.0-68.0) % Lymph % (Auto) 32.2 (22.0-35.0) % [place] % (Auto) 10.8 H (1.0-6.0) % Eos % (Auto) 2.4 (1.5-5.0) % Baso % (Auto) 0.8 (0.0-3.0) % Gran # 5.39 (1.4-6.5) Lymph # (Auto) 3.2 (1.2-3.4) [place] # (Auto) 1.1 H (0.1-0.6) Eos # (Auto) 0.2 (0.0-0.7) Baso # (Auto) 0.08 (0.0-2.0) K/mm3 PT (9.4-12.5) SECONDS INR APTT (25.1-36.5) Seconds D-Dimer, Quantitative (0-243) ng/mlDDU Sodium 138 (132-148) mmol/L Potassium 4.5 (3.6-5.0) mmol/L Chloride 103 (98-107) mmol/L Carbon Dioxide 22 (21-33) mmol/L Anion Gap 17 (10-20) BUN 19 (7-21) mg/dL Creatinine 0.9 (0.8-1.5) mg/dl Est GFR ( Amer) > 60 Est GFR (Non-Af Amer) > 60 POC Glucose (mg/dL) (65-110) mg/dL Random Glucose 176 H (70-110) mg/dL Hemoglobin A1c (4.2-6.5) % Calcium 9.3 (8.4-10.5) mg/dL Magnesium 1.9 (1.7-2.2) mg/dL Total Bilirubin 0.3 (0.2-1.3) mg/dL AST 25 (17-59) U/L ALT 33 (7-56) U/L Alkaline Phosphatase 57 (38-126) U/L Lactate Dehydrogenase 353 (333-699) U/L Total Creatine Kinase 42 (35-230) U/L Troponin I < 0.01 ng/mL NT-Pro-B Natriuret Pep (0-450) pg/mL Total Protein 7.6 (5.8-8.3) g/dL Albumin 4.3 (3.0-4.8) g/dL Globulin 3.3 gm/dL Albumin/Globulin Ratio 1.3 (1.1-1.8) Triglycerides (35-160) mg/dL Cholesterol (130-200) mg/dL LDL Cholesterol Direct (0-129) mg/dL HDL Cholesterol (29-60) mg/dL Laboratory Results - last 24 hr 10/07/18 10/07/18 10/07/18 22:56 22:56 23:27 WBC 10.0 RBC 4.77 Hgb 13.9 L Hct 41.7 L MCV 87.4 MCH 29.1 MCHC 33.3 RDW 13.0 Plt Count 222 MPV 9.4 Gran % 53.8 Lymph % (Auto) 32.2 [place] % (Auto) 10.8 H Eos % (Auto) 2.4 Baso % (Auto) 0.8 Gran # 5.39 Lymph # (Auto) 3.2 [place] # (Auto) 1.1 H Eos # (Auto) 0.2 Baso # (Auto) 0.08 PT 10.5 INR 0.92 APTT 26.2 D-Dimer, Quantitative < 200 Sodium 138 Potassium 4.5 Chloride 103 Carbon Dioxide 22 Anion Gap 17 BUN 19 Creatinine 0.9 Est GFR ( Amer) > 60 Est GFR (Non-Af Amer) > 60 POC Glucose (mg/dL) Random Glucose 176 H Hemoglobin A1c Calcium 9.3 Magnesium 1.9 Total Bilirubin 0.3 AST 25 ALT 33 Alkaline Phosphatase 57 Lactate Dehydrogenase 353 Total Creatine Kinase 42 Troponin I < 0.01 NT-Pro-B Natriuret Pep Total Protein 7.6 Albumin 4.3 Globulin 3.3 Albumin/Globulin Ratio 1.3 Triglycerides Cholesterol LDL Cholesterol Direct HDL Cholesterol 10/08/18 10/08/18 10/08/18 06:30 06:30 06:30 WBC 9.6 RBC 4.67 Hgb 13.4 L Hct 40.5 L MCV 86.7 MCH 28.7 MCHC 33.1 RDW 13.1 Plt Count 219 MPV 9.3 Gran % 59.1 Lymph % (Auto) 28.5 [place] % (Auto) 10.7 H Eos % (Auto) 1.3 L Baso % (Auto) 0.4 Gran # 5.67 Lymph # (Auto) 2.7 [place] # (Auto) 1.0 H Eos # (Auto) 0.1 Baso # (Auto) 0.04 PT INR APTT D-Dimer, Quantitative Sodium 140 Potassium 3.9 Chloride 108 H Carbon Dioxide 23 Anion Gap 14 BUN 14 Creatinine 0.7 L Est GFR ( Amer) > 60 Est GFR (Non-Af Amer) > 60 POC Glucose (mg/dL) Random Glucose 135 H Hemoglobin A1c 6.5 Calcium 8.5 Magnesium Total Bilirubin 0.2 AST 24 ALT 26 Alkaline Phosphatase 54 Lactate Dehydrogenase Total Creatine Kinase Troponin I NT-Pro-B Natriuret Pep 1530 H Total Protein 6.8 Albumin 3.8 Globulin 3.0 Albumin/Globulin Ratio 1.2 Triglycerides 66 Cholesterol 131 LDL Cholesterol Direct 74 HDL Cholesterol 46 10/08/18 10/08/18 07:40 08:45 WBC RBC Hgb Hct MCV MCH MCHC RDW Plt Count MPV Gran % Lymph % (Auto) [place] % (Auto) Eos % (Auto) Baso % (Auto) Gran # Lymph # (Auto) [place] # (Auto) Eos # (Auto) Baso # (Auto) PT INR APTT D-Dimer, Quantitative Sodium Potassium Chloride Carbon Dioxide Anion Gap BUN Creatinine Est GFR ( Amer) Est GFR (Non-Af Amer) POC Glucose (mg/dL) 151 H Random Glucose Hemoglobin A1c Calcium Magnesium Total Bilirubin AST ALT Alkaline Phosphatase Lactate Dehydrogenase Total Creatine Kinase Troponin I 0.03 D NT-Pro-B Natriuret Pep Total Protein Albumin Globulin Albumin/Globulin Ratio Triglycerides Cholesterol LDL Cholesterol Direct HDL Cholesterol Radiology Impressions: Radiology Impressions Chest X-Ray 10/07/18 22:46 IMPRESSION: No active disease. Chest CT 10/07/18 23:44 IMPRESSION: Unremarkable CT pulmonary angiogram. No pulmonary embolus. EKG/Cardiology Studies: Cardiology / EKG Studies 10/07/18 22:46 ELECTROCARDIOGRAM Stat Comment: Reason For Exam: syncope 10/08/18 00:33 ELECTROCARDIOGRAM Stat Comment: Reason For Exam: 2nd EKG 10/08/18 08:00 EKG [ELECTROCARDIOGRAM] Routine Comment: Reason For Exam: svt Critical Care Progress Note - Nutrition Nutrition: Nutrition Category Date Time Status Heart Healthy Diet [DIET] Diets 10/08/18 Lunch Active Assessment/Plan - Assessment and Plan (Free Text) Assessment: Patient seen and examined on rounds with resident, agree with note with following additions/exceptions: Patient is 78yo male with PMHx SVT requiring cardioversion (08/2017), NIDM2, HTN, HLD, PR 30 years ago, LE edema admitted with sustained Atrial Flutter, HR 150s, s/p Amio, Digoxin, and Verapamil, all of which failed to control HR, patient subsequently cardioverted with 1 Synchronized cardioversion shock of 100J after Versed 4mg IV x 1, and Fentanyl 50mcg IV x 1 given, patient converted to NSR HR 50s. Currently afebrile, BP stable,comfortable in NAD, doing well. Lab,s imaging, chart reviewed Troponin negative Atrial Flutter s/p Cardioversion NIDDM2 HTN HX CAD HLD Hx Smoking Recommend: - supp o2 as needed, duonebs PRN - NO ID issues - IVF - A/C Eliquis 5mg PO BID - ECHO - rate control, hold off for now given HR 50s - ASA, Statin - GI PPx - DVT ppx, ELiquis - Monitor on Tele Critical care time 35 minutes
--- NOTE | 2018-10-08 16:24 | CARD ---
APPROVED REPORT Date of service: 10/08/2018 EXAM: Two-dimensional and M-mode echocardiogram with Doppler and color Doppler. INDICATION SVT; LE EDEMA, HX OF [place] 2D DIMENSIONS Left Atrium (2D)4.5 (1.6-4.0cm)IVSd1.0 (0.7-1.1cm) LVDd5.1 (3.9-5.9cm)PWd1.3 (0.7-1.1cm) M-Mode DIMENSIONS Aortic Root3.40 (2.2-3.7cm)Aortic Cusp Exc.1.90 (1.5-2.0cm) Aortic Valve AoV Peak Zbknwtqm272.0cm/Ciro Peak GR.12mmHg Mitral Valve MV E Mgpzuity48.3cm/sMV A Avrhlgjp347.0cm/sE/A ratio0.8 TDI Lateral E' Peak V7.60cm/sMedial E' Peak V5.95cm/sE/Lateral E'12.3 E/Medial E'15.7 Pulmonary Valve PV Peak Orjcefze42.5cm/sPV Peak Grad.2mmHg Tricuspid Valve TR Peak Xzyfcaol864ol/sRAP [id number] Peak Gr.11mmHg [id number] LEFT VENTRICLE The left ventricle is normal size. There is normal left ventricular wall thickness. The systolic function is severely impaired. The Ejection Fraction is 25-30%. Hypokinetic Septum and dyskinetic [place] No left ventricle thrombus noted on this study. RIGHT VENTRICLE The right ventricle is normal size. There is normal right ventricular wall thickness. Systolic function is mildly reduced. ATRIA The left atrium is mildly dilated. The right atrium size is normal. AORTIC VALVE The aortic valve is not well visualized. No aortic regurgitation is present. There is no aortic valvular stenosis. MITRAL VALVE The mitral valve is not well visualized. Mitral regurgitation is trace. There is no mitral valve stenosis. TRICUSPID VALVE There is no tricuspid valve regurgitation noted. There is no tricuspid valve stenosis. PULMONIC VALVE There is no pulmonic valvular regurgitation. There is no pulmonic valvular stenosis. GREAT VESSELS The aortic root is normal in size. The IVC is normal in size and collapses >50% with inspiration. PERICARDIAL EFFUSION There is a trace pericardial effusion. <Conclusion> The left ventricle is normal size. There is normal left ventricular wall thickness. The systolic function is severely impaired. The Ejection Fraction is 25-30%. Hypokinetic Septum and dyskinetic [place] No left ventricle thrombus noted on this study.
--- NOTE | 2018-10-08 18:40 | CARD ---
APPROVED REPORT Date of service: 10/08/2018 EKG Measurement Heart [id number] <Conclusion> Atrial flutter with 2:1 block Nonspecific intraventricular block Inferior infarct, age undetermined Abnormal ECG
--- NOTE | 2018-10-08 18:47 | CARD ---
APPROVED REPORT Date of service: 10/08/2018 EKG Measurement Heart [id number] <Conclusion> Atrial flutter with 2:1 block Nonspecific intraventricular block Inferior infarct, age undetermined Abnormal ECG
--- NOTE | 2018-10-08 20:22 | CON ---
DATE OF CONSULTATION: 10/08/2018 REQUESTING PHYSICIAN: Brianna Govea MD REASON FOR CONSULTATION: Tachycardia. HISTORY: This is an 78-year-old man with a history of hypertension, diabetes, and a prior history of SVT, who had a near syncopal event. In the emergency room, he was noted to be tachycardic at 150 beats per minute. He has been given Cardizem adenosine and amiodarone with no improvement in his tachycardia. He is seen lying in bed in the CCU. He denies any chest pain or dyspnea. He moved here to [place] last February after living in [place] for many years. While there, approximately a year ago, he had an episode of apparent SVT, which required electrocardioversion. He has had a prior cardiac workup there, the details of which are unavailable. He reportedly had a myocardial infarction many years ago. He states his last stress test was over 2 years ago. He does have a history of hypertension and diabetes. He is a smoker, but quit many years ago. His cholesterol is elevated. There is no family history of premature heart disease. PAST HISTORY: Notable for the problems mentioned above. He has had a benign cyst removed from his back many years ago. FAMILY HISTORY: Both parents from age-related illness. SOCIAL HISTORY: He is and lives with his and family. He is retired. He quit smoking many years ago. He denies alcohol abuse. MEDICATIONS AT HOME: Carvedilol, Lasix, Protonix, Pravachol, Cozaar and Glucophage. ALLERGIES: HE REPORTEDLY HAD A REACTION TO LIPITOR. REVIEW OF SYSTEMS: A 10-point review of systems is otherwise unremarkable. PHYSICAL EXAMINATION: GENERAL: He is a relatively healthy-appearing elderly man. VITAL SIGNS: His blood pressure is 90/60 with a pulse of 150, respirations are 14. He is afebrile. HEENT: Normocephalic, atraumatic. NECK: Supple. No JVD noted. CHEST: Few scattered rhonchi heard. HEART: PMI displaced laterally. Rhythm is tachycardic. Systolic murmur is present at the left sternal border. ABDOMEN: Soft, nontender, normoactive bowel sounds. EXTREMITIES: No edema. SKIN: Warm and dry. PSYCHIATRIC: Normal mood and affect. NEUROLOGIC: Alert and oriented x3. No gross motor or sensory deficits notable. DIAGNOSTIC DATA: White count 10.0, hemoglobin and hematocrit 13.9 and 41.7, and platelet count 222,000. PT/PTT normal. Potassium 3.9, BUN and creatinine 14 and 0.7, glucose 135. Hemoglobin A1c 6.5%. BNP 1530. Troponin is not detected. CK is 42. Cholesterol 131 with an HDL 46, LDL 74, and triglycerides of 66. Electrocardiogram reveals atrial flutter with 2:1 conduction, nonspecific intraventricular conduction delay, possible remote inferior myocardial fraction and nonspecific ST-T abnormalities. Chest x-ray reveals normal cardiac silhouette with clear lung howard. IMPRESSION: 1. Apparent atrial flutter with 2:1 conduction resistant to drug therapy given the above electrocardioversion at this time would be reasonable. 2. History of hypertension and diabetes. 3. Hyperlipidemia. 4. Probable coronary artery disease with history of remote myocardial fraction. RECOMMENDATIONS: An additional bolus of IV amiodarone will be administered if this is not successful in converting him to sinus rhythm. Plans will be made for electrocardioversion at the bedside today. The risks and benefits were discussed in detail with the patient and his daughter. An echocardiogram is pending and will be reviewed. Old records will be requested. Anticoagulation for at least several weeks following cardioversion would be advisable. Thank you for this consultation. We will be happy to follow and make any further recommendations as appropriate. Benjamin Rojas MD
--- NOTE | 2018-10-08 20:43 | HP ---
DATE OF EXAM: 10/08/2018 HISTORY OF PRESENT ILLNESS: This 78-year-old male who was examined in bed 3 of the medical ICU at the [facility] on the morning of 10/08/2018. Dr. Benjamin Rojas was present at the bedside during my evaluation and the patient was admitted after presenting to the [facility] ER late last evening in supraventricular tachycardia with an EKG finding of atrial flutter, despite receiving IV Cardizem, IV Lopressor and IV amiodarone , the patient continued to have tachycardia and is now being prepared for cardioversion. PAST MEDICAL HISTORY: According to EMR, the patient's past medical history is significant for myocardial infarction, atherosclerotic heart disease, hyperlipidemia, chronic hypertension, peptic ulcer disease with GERD, type 2 diabetes mellitus, and chronic hypertension. OUTPATIENT MEDICATIONS: Included Coreg, Cozaar, metformin, Protonix, Lasix, and Pravachol. ALLERGIES: THE PATIENT APPARENTLY HAS AN ALLERGY TO LIPITOR. SOCIAL HISTORY: He is a current nondrinker, nonsmoker, and non IV drug misuser. He is retired gentleman. FAMILY HISTORY: Noncontributory. REVIEW OF SYSTEMS: According to his EMR on review of systems; CONSTITUTIONAL REVIEW: There were no fever and no chills. HEAD REVIEW: No headache or seizure. EYES REVIEW: No change in visual acuity. EARS REVIEW: No hearing loss. THROAT REVIEW: No swallowing difficulty. NECK REVIEW: No stiffness. CARDIAC REVIEW: As per HPI, now in atrial flutter rhythm with a pulse rate of 150. PULMONARY: No cough. No hemoptysis. GASTROINTESTINAL: No hematemesis. No melena. GENITOURINARY: No dysuria. SKIN: Without rash. NEUROLOGIC: No knowledge of stroke. VASCULAR: No claudication. PSYCHOLOGIC: No knowledge of depression. PHYSICAL EXAMINATION: VITAL SIGNS: At the present time, his temperature was 98.5, respirations 16, pulse 150, blood pressure 108/72 with a pulse ox of 98% on room air. HEENT: Head; normocephalic and atraumatic. Eyes: No icterus. Ears: Clear. Throat: Noninjected. NECK: Supple. HEART: Rapid S1 and S2. LUNGS: Clear. ABDOMEN: Soft. EXTREMITIES: No edema. SKIN: Without rash. NEUROLOGICAL: Nonfocal. VASCULAR: Legs warm to touch. LABORATORY DATA: White count 9600, hemoglobin 13.4, hematocrit 40.5, and platelets 219,000. PT/INR 0.92 and PTT 26.2. D-dimer less than 200. Sodium 140, K 3.9, chloride 108, bicarb 23, BUN 14, creatinine 0.7, and random blood sugar 151. Bilirubin 0.2, AST 24, ALT 26, and alk phos 54. CPK 42. Troponin less than 0.01. BNP 1530 and albumin 3.8. Cholesterol 131, triglycerides 66, LDL 74, and HDL 46. Chest x-ray was reviewed, it showed no significant pleural effusions, no pneumothorax, and no active pulmonary disease. There was no evidence of CHF or pulmonary infiltrate. There was evidence of aortic calcification. Chest CT was reviewed, it showed no evidence of pulmonary embolism.. Pleural spaces were unremarkable. There was no pneumothorax or effusion. No lymphadenopathy was noted. EKG was reviewed, it showed atrial flutter with 2:1 conduction block with nonspecific ST-T wave changes and evidence of old inferior wall myocardial infarction. IMPRESSION: An 78-year-old male with recurrent supraventricular tachycardia now with atrial flutter with rapid ventricular response and history of comorbidities of hyperlipidemia, stable atherosclerotic heart disease, chronic hypertension, peptic ulcer disease with gastroesophageal reflux disease, type 2 diabetes mellitus, and ALLERGY TO LIPITOR. PLAN: At present is to continue Ecotrin, Eliquis has been started at 5 mg p.o. b.i.d., he continues on Humulin R medium insulin protocol a.c. meals and at bedtime and is scheduled to have a hemoglobin A1c, comprehensive metabolic panel, thyroid, TSH screen, and MRSA screen of his nares. Echocardiogram has been ordered to evaluate wall motion with history of myocardial infarction and based on clinical progress, additional diagnostic workup and testing will be entertained. Greater than 75 minutes was spent in the critical care management of this patient including outlining of orders, discussion with television parts tester, Dr. Sean Akins, Dr. Benjamin Rojas from Cardiology and nursing. All questions were answered. Brianna Govea MD [facility] # [id number] MTDD
[2018-10-09 07:05] LABS: BASO # 0.03 K/mm3 (0.0-2.0); BASO % 0.5 % (0.0-3.0); EOS # 0.2 (0.0-0.7); EOS % 2.7 % (1.5-5.0); GRAN # 3.18 (1.4-6.5); GRAN % 56.8 % (50.0-68.0); LYMPH # 1.8 (1.2-3.4); LYMPH % 32.3 % (22.0-35.0); MEAN CELL VOLUME 87.1 fl (80.0-105.0); MEAN CORPUSCULAR HEMOGLOBIN 28.3 pg (25.0-35.0); MEAN CORPUSCULAR HGB CONC 32.5 g/dl (31.0-37.0); MEAN PLATELET VOLUME 9.1 fl (7.0-11.0); MONO # 0.4 (0.1-0.6); MONO % 7.7 % (1.0-6.0); RBC 4.59 10^6/uL (3.5-6.1); WHITE BLOOD COUNT 5.6 10^3/uL (4.5-11.0)
--- NOTE | 2018-10-09 07:18 | CP.CCUPN ---
<Boni Pace - Last Filed: 10/09/18 10:32> CCU Subjective - Physician Review Subjective (Free Text): Boni Pace PGY1 Critical Care Progress Note Patient seen and examined at bedside this morning. No acute events reported overnight. Patient states he slept comfortably and is tolerating diet without complaints. Patient HR in the 50s overnight. Offers no complaints today. [facility] [place] CCU Objective - Vital Signs / Intake & Output Vital Signs (Last 4 hours): Vital Signs Temp Pulse Resp BP 10/09/18 04:30 56 L 12 10/09/18 04:20 55 L 10 L 10/09/18 04:10 56 L 14 10/09/18 04:00 98.7 F 58 L 143/70 10/09/18 03:50 53 L 15 10/09/18 03:40 54 L 4 L 10/09/18 03:30 54 L 10/09/18 03:29 98 F 10/09/18 03:20 48 L 12 Intake and Output (Last 8hrs): Intake & Output 10/08/18 10/09/18 10/09/18 22:59 06:59 14:59 Intake Total 700 Output Total 400 Balance 300 Intake: IV 500 Left Forearm 500 Oral 200 Output: Urine 400 Urine, Voided 400 Other: # Voids Urine, Voided 2 # Bowel Movements 1 - Physical Exam Head: Positive for: Atraumatic, Normocephalic Pupils: Positive for: PERRL Extroacular Muscles: Positive for: EOMI Conjunctiva: Positive for: Normal Mouth: Positive for: Moist Mucous Membranes Neck: Positive for: Normal Range of Motion Respiratory/Chest: Positive for: Clear to Auscultation, Good Air Exchange. Negative for: Respiratory Distress, Accessory Muscle Use Cardiovascular: Positive for: Normal S1, S2 Abdomen: Positive for: Normal Bowel Sounds. Negative for: Tenderness, Distention, Peritoneal Signs Upper Extremity: Positive for: Normal Inspection. Negative for: Cyanosis, Edema Lower Extremity: Positive for: Normal Inspection Neurological: Positive for: GCS=15, CN II-XII Intact, Speech Normal Skin: Positive for: Warm, Dry, Normal Color. Negative for: Rashes Psychiatric: Positive for: Alert, Oriented x 3 - Medications Active Medications: Active Medications Generic Name Dose Route Start Last Admin Trade Name Freq PRN Reason Stop Dose Admin Apixaban 5 mg 10/08/18 11:15 10/08/18 18:41 Eliquis PO 5 mg BID KIESHA Administration Protocol Aspirin 81 mg 10/08/18 10:00 10/08/18 14:30 Aspirin Chewable PO 81 mg DAILY KIESHA Administration Dextrose 0 ml 10/08/18 03:48 Dextrose 50% Inj IV STAT PRN Hypoglycemia Protocol Protocol Dextrose 1,000 mls @ 0 mls/hr 10/08/18 03:48 Dextrose 5% In Water 1000 Ml IV .Q0M PRN Hypoglycemia Protocol Protocol Per Protocol Insulin Human Regular 0 units 10/08/18 07:30 10/08/18 22:17 Humulin R Med SC Not Given ACHS [facility] Protocol - Patient Studies Lab Studies: Lab Studies 10/09/18 10/08/18 10/08/18 Range/Units 05:40 22:16 16:17 WBC (4.5-11.0) 10^3/uL RBC (3.5-6.1) 10^6/uL Hgb (14.0-18.0) g/dL Hct (42.0-52.0) % MCV (80.0-105.0) fl MCH (25.0-35.0) pg MCHC (31.0-37.0) g/dl RDW (11.5-14.5) % Plt Count (120.0-450.0) 10^3/uL MPV (7.0-11.0) fl Gran % (50.0-68.0) % Lymph % (Auto) (22.0-35.0) % Dickey % (Auto) (1.0-6.0) % Eos % (Auto) (1.5-5.0) % Baso % (Auto) (0.0-3.0) % Gran # (1.4-6.5) Lymph # (Auto) (1.2-3.4) Dickey # (Auto) (0.1-0.6) Eos # (Auto) (0.0-0.7) Baso # (Auto) (0.0-2.0) K/mm3 APTT 29.1 (25.1-36.5) Seconds Sodium (132-148) mmol/L Potassium (3.6-5.0) mmol/L Chloride (98-107) mmol/L Carbon Dioxide (21-33) mmol/L Anion Gap (10-20) BUN (7-21) mg/dL Creatinine (0.8-1.5) mg/dl Est GFR ( Amer) Est GFR (Non-Af Amer) POC Glucose (mg/dL) 136 H 121 H (65-110) mg/dL Random Glucose (70-110) mg/dL Hemoglobin A1c (4.2-6.5) % Calcium (8.4-10.5) mg/dL Total Bilirubin (0.2-1.3) mg/dL AST (17-59) U/L ALT (7-56) U/L Alkaline Phosphatase (38-126) U/L Troponin I ng/mL NT-Pro-B Natriuret Pep (0-450) pg/mL Total Protein (5.8-8.3) g/dL Albumin (3.0-4.8) g/dL Globulin gm/dL Albumin/Globulin Ratio (1.1-1.8) Triglycerides (35-160) mg/dL Cholesterol (130-200) mg/dL LDL Cholesterol Direct (0-129) mg/dL HDL Cholesterol (29-60) mg/dL 10/08/18 10/08/18 10/08/18 Range/Units 13:20 11:29 08:45 WBC (4.5-11.0) 10^3/uL RBC (3.5-6.1) 10^6/uL Hgb (14.0-18.0) g/dL Hct (42.0-52.0) % MCV (80.0-105.0) fl MCH (25.0-35.0) pg MCHC (31.0-37.0) g/dl RDW (11.5-14.5) % Plt Count (120.0-450.0) 10^3/uL MPV (7.0-11.0) fl Gran % (50.0-68.0) % Lymph % (Auto) (22.0-35.0) % Dickey % (Auto) (1.0-6.0) % Eos % (Auto) (1.5-5.0) % Baso % (Auto) (0.0-3.0) % Gran # (1.4-6.5) Lymph # (Auto) (1.2-3.4) Dickey # (Auto) (0.1-0.6) Eos # (Auto) (0.0-0.7) Baso # (Auto) (0.0-2.0) K/mm3 APTT 26.7 (25.1-36.5) Seconds Sodium (132-148) mmol/L Potassium (3.6-5.0) mmol/L Chloride (98-107) mmol/L Carbon Dioxide (21-33) mmol/L Anion Gap (10-20) BUN (7-21) mg/dL Creatinine (0.8-1.5) mg/dl Est GFR ( Amer) Est GFR (Non-Af Amer) POC Glucose (mg/dL) 146 H 151 H (65-110) mg/dL Random Glucose (70-110) mg/dL Hemoglobin A1c (4.2-6.5) % Calcium (8.4-10.5) mg/dL Total Bilirubin (0.2-1.3) mg/dL AST (17-59) U/L ALT (7-56) U/L Alkaline Phosphatase (38-126) U/L Troponin I ng/mL NT-Pro-B Natriuret Pep (0-450) pg/mL Total Protein (5.8-8.3) g/dL Albumin (3.0-4.8) g/dL Globulin gm/dL Albumin/Globulin Ratio (1.1-1.8) Triglycerides (35-160) mg/dL Cholesterol (130-200) mg/dL LDL Cholesterol Direct (0-129) mg/dL HDL Cholesterol (29-60) mg/dL 10/08/18 10/08/18 10/08/18 Range/Units 07:40 06:30 06:30 WBC (4.5-11.0) 10^3/uL RBC (3.5-6.1) 10^6/uL Hgb (14.0-18.0) g/dL Hct (42.0-52.0) % MCV (80.0-105.0) fl MCH (25.0-35.0) pg MCHC (31.0-37.0) g/dl RDW (11.5-14.5) % Plt Count (120.0-450.0) 10^3/uL MPV (7.0-11.0) fl Gran % (50.0-68.0) % Lymph % (Auto) (22.0-35.0) % Dickey % (Auto) (1.0-6.0) % Eos % (Auto) (1.5-5.0) % Baso % (Auto) (0.0-3.0) % Gran # (1.4-6.5) Lymph # (Auto) (1.2-3.4) Dickey # (Auto) (0.1-0.6) Eos # (Auto) (0.0-0.7) Baso # (Auto) (0.0-2.0) K/mm3 APTT (25.1-36.5) Seconds Sodium 140 (132-148) mmol/L Potassium 3.9 (3.6-5.0) mmol/L Chloride 108 H (98-107) mmol/L Carbon Dioxide 23 (21-33) mmol/L Anion Gap 14 (10-20) BUN 14 (7-21) mg/dL Creatinine 0.7 L (0.8-1.5) mg/dl Est GFR ( Amer) > 60 Est GFR (Non-Af Amer) > 60 POC Glucose (mg/dL) (65-110) mg/dL Random Glucose 135 H (70-110) mg/dL Hemoglobin A1c 6.5 (4.2-6.5) % Calcium 8.5 (8.4-10.5) mg/dL Total Bilirubin 0.2 (0.2-1.3) mg/dL AST 24 (17-59) U/L ALT 26 (7-56) U/L Alkaline Phosphatase 54 (38-126) U/L Troponin I 0.03 D ng/mL NT-Pro-B Natriuret Pep 1530 H (0-450) pg/mL Total Protein 6.8 (5.8-8.3) g/dL Albumin 3.8 (3.0-4.8) g/dL Globulin 3.0 gm/dL Albumin/Globulin Ratio 1.2 (1.1-1.8) Triglycerides 66 (35-160) mg/dL Cholesterol 131 (130-200) mg/dL LDL Cholesterol Direct 74 (0-129) mg/dL HDL Cholesterol 46 (29-60) mg/dL 10/08/18 Range/Units 06:30 WBC 9.6 (4.5-11.0) 10^3/uL RBC 4.67 (3.5-6.1) 10^6/uL Hgb 13.4 L (14.0-18.0) g/dL Hct 40.5 L (42.0-52.0) % MCV 86.7 (80.0-105.0) fl MCH 28.7 (25.0-35.0) pg MCHC 33.1 (31.0-37.0) g/dl RDW 13.1 (11.5-14.5) % Plt Count 219 (120.0-450.0) 10^3/uL MPV 9.3 (7.0-11.0) fl Gran % 59.1 (50.0-68.0) % Lymph % (Auto) 28.5 (22.0-35.0) % Dickey % (Auto) 10.7 H (1.0-6.0) % Eos % (Auto) 1.3 L (1.5-5.0) % Baso % (Auto) 0.4 (0.0-3.0) % Gran # 5.67 (1.4-6.5) Lymph # (Auto) 2.7 (1.2-3.4) Dickey # (Auto) 1.0 H (0.1-0.6) Eos # (Auto) 0.1 (0.0-0.7) Baso # (Auto) 0.04 (0.0-2.0) K/mm3 APTT (25.1-36.5) Seconds Sodium (132-148) mmol/L Potassium (3.6-5.0) mmol/L Chloride (98-107) mmol/L Carbon Dioxide (21-33) mmol/L Anion Gap (10-20) BUN (7-21) mg/dL Creatinine (0.8-1.5) mg/dl Est GFR ( Amer) Est GFR (Non-Af Amer) POC Glucose (mg/dL) (65-110) mg/dL Random Glucose (70-110) mg/dL Hemoglobin A1c (4.2-6.5) % Calcium (8.4-10.5) mg/dL Total Bilirubin (0.2-1.3) mg/dL AST (17-59) U/L ALT (7-56) U/L Alkaline Phosphatase (38-126) U/L Troponin I ng/mL NT-Pro-B Natriuret Pep (0-450) pg/mL Total Protein (5.8-8.3) g/dL Albumin (3.0-4.8) g/dL Globulin gm/dL Albumin/Globulin Ratio (1.1-1.8) Triglycerides (35-160) mg/dL Cholesterol (130-200) mg/dL LDL Cholesterol Direct (0-129) mg/dL HDL Cholesterol (29-60) mg/dL Laboratory Results - last 24 hr 10/08/18 10/08/18 10/08/18 06:30 06:30 06:30 WBC 9.6 RBC 4.67 Hgb 13.4 L Hct 40.5 L MCV 86.7 MCH 28.7 MCHC 33.1 RDW 13.1 Plt Count 219 MPV 9.3 Gran % 59.1 Lymph % (Auto) 28.5 Dickey % (Auto) 10.7 H Eos % (Auto) 1.3 L Baso % (Auto) 0.4 Gran # 5.67 Lymph # (Auto) 2.7 Dickey # (Auto) 1.0 H Eos # (Auto) 0.1 Baso # (Auto) 0.04 APTT Sodium 140 Potassium 3.9 Chloride 108 H Carbon Dioxide 23 Anion Gap 14 BUN 14 Creatinine 0.7 L Est GFR ( Amer) > 60 Est GFR (Non-Af Amer) > 60 POC Glucose (mg/dL) Random Glucose 135 H Hemoglobin A1c 6.5 Calcium 8.5 Total Bilirubin 0.2 AST 24 ALT 26 Alkaline Phosphatase 54 Troponin I NT-Pro-B Natriuret Pep 1530 H Total Protein 6.8 Albumin 3.8 Globulin 3.0 Albumin/Globulin Ratio 1.2 Triglycerides 66 Cholesterol 131 LDL Cholesterol Direct 74 HDL Cholesterol 46 10/08/18 10/08/18 10/08/18 07:40 08:45 11:29 WBC RBC Hgb Hct MCV MCH MCHC RDW Plt Count MPV Gran % Lymph % (Auto) Dickey % (Auto) Eos % (Auto) Baso % (Auto) Gran # Lymph # (Auto) Dickey # (Auto) Eos # (Auto) Baso # (Auto) APTT Sodium Potassium Chloride Carbon Dioxide Anion Gap BUN Creatinine Est GFR ( Amer) Est GFR (Non-Af Amer) POC Glucose (mg/dL) 151 H 146 H Random Glucose Hemoglobin A1c Calcium Total Bilirubin AST ALT Alkaline Phosphatase Troponin I 0.03 D NT-Pro-B Natriuret Pep Total Protein Albumin Globulin Albumin/Globulin Ratio Triglycerides Cholesterol LDL Cholesterol Direct HDL Cholesterol 10/08/18 10/08/18 10/08/18 13:20 16:17 22:16 WBC RBC Hgb Hct MCV MCH MCHC RDW Plt Count MPV Gran % Lymph % (Auto) Dickey % (Auto) Eos % (Auto) Baso % (Auto) Gran # Lymph # (Auto) Dickey # (Auto) Eos # (Auto) Baso # (Auto) APTT 26.7 Sodium Potassium Chloride Carbon Dioxide Anion Gap BUN Creatinine Est GFR ( Amer) Est GFR (Non-Af Amer) POC Glucose (mg/dL) 121 H 136 H Random Glucose Hemoglobin A1c Calcium Total Bilirubin AST ALT Alkaline Phosphatase Troponin I NT-Pro-B Natriuret Pep Total Protein Albumin Globulin Albumin/Globulin Ratio Triglycerides Cholesterol LDL Cholesterol Direct HDL Cholesterol 10/09/18 05:40 WBC RBC Hgb Hct MCV MCH MCHC RDW Plt Count MPV Gran % Lymph % (Auto) Dickey % (Auto) Eos % (Auto) Baso % (Auto) Gran # Lymph # (Auto) Dickey # (Auto) Eos # (Auto) Baso # (Auto) APTT 29.1 Sodium Potassium Chloride Carbon Dioxide Anion Gap BUN Creatinine Est GFR ( Amer) Est GFR (Non-Af Amer) POC Glucose (mg/dL) Random Glucose Hemoglobin A1c Calcium Total Bilirubin AST ALT Alkaline Phosphatase Troponin I NT-Pro-B Natriuret Pep Total Protein Albumin Globulin Albumin/Globulin Ratio Triglycerides Cholesterol LDL Cholesterol Direct HDL Cholesterol Radiology Impressions: Radiology Impressions Chest X-Ray 10/07/18 22:46 IMPRESSION: No active disease. Chest CT 10/07/18 23:44 IMPRESSION: Unremarkable CT pulmonary angiogram. No pulmonary embolus. EKG/Cardiology Studies: Cardiology / EKG Studies 10/08/18 08:00 EKG [ELECTROCARDIOGRAM] Routine Comment: Reason For Exam: svt Fingerstick Blood Sugar Results: 136 Critical Care Progress Note - Nutrition Nutrition: Nutrition Category Date Time Status Heart Healthy Diet [DIET] Diets 10/08/18 Lunch Active Assessment/Plan - Assessment and Plan (Free Text) Assessment: This is an 78 year male with a PMH of SVT requiring cardioversion (08/2017), NIDM2, HTN, HLD, [place] 30 years ago, LE edema who presents to the ICU for management of atrial flutter with sustained HR in the 140's, s/p cardioversion 10/08/18. HR in the 50's overnight. [facility] [place] [facility]. Plan: Neuro: -AO x3, moving extremities spontaneously past midline Cardiovascular Atrial flutter s/p cardioversion -In ED given: cardizem 10mg ivp x2, amio 150mg ivp once, lopressor 5mg ivp once, adenosine 6mg ivp once, attempted vagal massage with no sustained reduction in HR -patient continued to have sustained elevation in HR despite amiodarone drip on 10/08/18 -patient was sedated with a total of 4mg of versed and 50 mics of fentanyl and subsequently cardioverted on 10/08/18 -HR is now in the 50's with stable BP, continued to be in the 50s overnight -consult cardiology, Dr Cleary -troponin 0.01, 0.03, BNP 1530 -echo shows EF 25-30%, hypoinetic septum and dyskinetic apex -lipid panel WNL -A1c is 6.5%, TSH pending -continue ASA, started on eliquis 5mg BID -hold home coreg, losartan and lasix due to mild hypotension, bradycardia Lungs: -SaO2 >90% -supplementary O2 PRN -CXR 10/07/18 shows no active disease -CTA 10/07/18 did not show PE Renal: -maintain euvolemia -avoid nephrotoxic agents, hypochloremia -replace electrolytes as needed -BUN/Cr WNL, 12/0.8 Heme: -Hg today is 13, will monitor -on eliquis 5mg BID s/p cardioversion -DVT ppx with eliquis ID: -WBC is 5.6 today, afebrile -MRSA screen pending Endocrine -NIDD2 -A1c is 6.5% -accuchecks achs with RISS -medium coverage -hold home metformin for now GI: -heat healthy diet -GI prophylaxis not indicated at this time Patient seen and case discussed with attending, Dr. Akins <Sean Akins - Last Filed: 10/09/18 12:14> CCU Objective - Vital Signs / Intake & Output Vital Signs (Last 4 hours): Vital Signs Pulse Resp BP Pulse Ox 10/09/18 11:20 55 L 146/72 10/09/18 10:00 54 L 16 158/63 H 100 10/09/18 09:00 69 17 148/64 100 Intake and Output (Last 8hrs): Intake & Output 10/08/18 10/09/18 10/09/18 22:59 06:59 14:59 Intake Total 700 60 Output Total 400 700 Balance 300 -640 Weight 151 lb 3 oz Intake: IV 500 Left Forearm 500 Oral 200 60 Output: Urine 400 700 Urine, Voided 400 700 Other: # Voids Urine, Voided 2 # Bowel Movements 1 0 - Medications Active Medications: Active Medications Generic Name Dose Route Start Last Admin Trade Name Freq PRN Reason Stop Dose Admin Apixaban 5 mg 10/08/18 11:15 10/09/18 09:11 Eliquis PO 5 mg BID KIESHA Administration Protocol Aspirin 81 mg 10/08/18 10:00 10/09/18 09:11 Aspirin Chewable PO 81 mg DAILY KIESHA Administration Dextrose 0 ml 10/08/18 03:48 Dextrose 50% Inj IV STAT PRN Hypoglycemia Protocol Protocol Dextrose 1,000 mls @ 0 mls/hr 10/08/18 03:48 Dextrose 5% In Water 1000 Ml IV .Q0M PRN Hypoglycemia Protocol Protocol Per Protocol Insulin Human Regular 0 units 10/08/18 07:30 10/09/18 11:20 Humulin R Med SC 1 unit ACHS KIESHA Administration Protocol Losartan Potassium 50 mg 10/09/18 11:00 10/09/18 11:20 Cozaar PO 50 mg DAILY KIESHA Administration Polyethylene Glycol 17 gm 10/09/18 10:00 10/09/18 09:11 Miralax PO 17 gm BID KIESHA Administration - Patient Studies Lab Studies: Microbiology Studies 10/08/18 04:15 MRSA Culture (Admit) - Final Naris MRSA NOT DETECTED Lab Studies 10/09/18 10/09/18 10/09/18 Range/Units 11:06 07:42 05:40 WBC (4.5-11.0) 10^3/uL RBC (3.5-6.1) 10^6/uL Hgb (14.0-18.0) g/dL Hct (42.0-52.0) % MCV (80.0-105.0) fl MCH (25.0-35.0) pg MCHC (31.0-37.0) g/dl RDW (11.5-14.5) % Plt Count (120.0-450.0) 10^3/uL MPV (7.0-11.0) fl Gran % (50.0-68.0) % Lymph % (Auto) (22.0-35.0) % Dickey % (Auto) (1.0-6.0) % Eos % (Auto) (1.5-5.0) % Baso % (Auto) (0.0-3.0) % Gran # (1.4-6.5) Lymph # (Auto) (1.2-3.4) Dickey # (Auto) (0.1-0.6) Eos # (Auto) (0.0-0.7) Baso # (Auto) (0.0-2.0) K/mm3 APTT 29.1 (25.1-36.5) Seconds Sodium (132-148) mmol/L Potassium (3.6-5.0) mmol/L Chloride (98-107) mmol/L Carbon Dioxide (21-33) mmol/L Anion Gap (10-20) BUN (7-21) mg/dL Creatinine (0.8-1.5) mg/dl Est GFR ( Amer) Est GFR (Non-Af Amer) POC Glucose (mg/dL) 174 H 110 (65-110) mg/dL Random Glucose (70-110) mg/dL Hemoglobin A1c (4.2-6.5) % Calcium (8.4-10.5) mg/dL Total Bilirubin (0.2-1.3) mg/dL AST (17-59) U/L ALT (7-56) U/L Alkaline Phosphatase (38-126) U/L Total Protein (5.8-8.3) g/dL Albumin (3.0-4.8) g/dL Globulin gm/dL Albumin/Globulin Ratio (1.1-1.8) TSH 3rd Generation (0.46-4.68) mIU/mL 10/09/18 10/09/18 10/09/18 Range/Units 05:40 05:40 05:40 WBC 5.6 D (4.5-11.0) 10^3/uL RBC 4.59 (3.5-6.1) 10^6/uL Hgb 13.0 L (14.0-18.0) g/dL Hct 40.0 L (42.0-52.0) % MCV 87.1 (80.0-105.0) fl MCH 28.3 (25.0-35.0) pg MCHC 32.5 (31.0-37.0) g/dl RDW 13.0 (11.5-14.5) % Plt Count 208 (120.0-450.0) 10^3/uL MPV 9.1 (7.0-11.0) fl Gran % 56.8 (50.0-68.0) % Lymph % (Auto) 32.3 (22.0-35.0) % Dickey % (Auto) 7.7 H (1.0-6.0) % Eos % (Auto) 2.7 (1.5-5.0) % Baso % (Auto) 0.5 (0.0-3.0) % Gran # 3.18 (1.4-6.5) Lymph # (Auto) 1.8 (1.2-3.4) Dickey # (Auto) 0.4 (0.1-0.6) Eos # (Auto) 0.2 (0.0-0.7) Baso # (Auto) 0.03 (0.0-2.0) K/mm3 APTT (25.1-36.5) Seconds Sodium 139 (132-148) mmol/L Potassium 3.8 (3.6-5.0) mmol/L Chloride 106 (98-107) mmol/L Carbon Dioxide 28 (21-33) mmol/L Anion Gap 8 L (10-20) BUN 12 (7-21) mg/dL Creatinine 0.8 (0.8-1.5) mg/dl Est GFR ( Amer) > 60 Est GFR (Non-Af Amer) > 60 POC Glucose (mg/dL) (65-110) mg/dL Random Glucose 106 (70-110) mg/dL Hemoglobin A1c (4.2-6.5) % Calcium 8.9 (8.4-10.5) mg/dL Total Bilirubin 0.4 (0.2-1.3) mg/dL AST 26 (17-59) U/L ALT 30 (7-56) U/L Alkaline Phosphatase 50 (38-126) U/L Total Protein 6.6 (5.8-8.3) g/dL Albumin 3.7 (3.0-4.8) g/dL Globulin 3.0 gm/dL Albumin/Globulin Ratio 1.2 (1.1-1.8) TSH 3rd Generation 2.07 (0.46-4.68) mIU/mL 10/08/18 10/08/18 10/08/18 Range/Units 22:16 16:17 13:20 WBC (4.5-11.0) 10^3/uL RBC (3.5-6.1) 10^6/uL Hgb (14.0-18.0) g/dL Hct (42.0-52.0) % MCV (80.0-105.0) fl MCH (25.0-35.0) pg MCHC (31.0-37.0) g/dl RDW (11.5-14.5) % Plt Count (120.0-450.0) 10^3/uL MPV (7.0-11.0) fl Gran % (50.0-68.0) % Lymph % (Auto) (22.0-35.0) % Dickey % (Auto) (1.0-6.0) % Eos % (Auto) (1.5-5.0) % Baso % (Auto) (0.0-3.0) % Gran # (1.4-6.5) Lymph # (Auto) (1.2-3.4) Dickey # (Auto) (0.1-0.6) Eos # (Auto) (0.0-0.7) Baso # (Auto) (0.0-2.0) K/mm3 APTT 26.7 (25.1-36.5) Seconds Sodium (132-148) mmol/L Potassium (3.6-5.0) mmol/L Chloride (98-107) mmol/L Carbon Dioxide (21-33) mmol/L Anion Gap (10-20) BUN (7-21) mg/dL Creatinine (0.8-1.5) mg/dl Est GFR ( Amer) Est GFR (Non-Af Amer) POC Glucose (mg/dL) 136 H 121 H (65-110) mg/dL Random Glucose (70-110) mg/dL Hemoglobin A1c (4.2-6.5) % Calcium (8.4-10.5) mg/dL Total Bilirubin (0.2-1.3) mg/dL AST (17-59) U/L ALT (7-56) U/L Alkaline Phosphatase (38-126) U/L Total Protein (5.8-8.3) g/dL Albumin (3.0-4.8) g/dL Globulin gm/dL Albumin/Globulin Ratio (1.1-1.8) TSH 3rd Generation (0.46-4.68) mIU/mL 10/08/18 10/08/18 Range/Units 11:29 06:30 WBC (4.5-11.0) 10^3/uL RBC (3.5-6.1) 10^6/uL Hgb (14.0-18.0) g/dL Hct (42.0-52.0) % MCV (80.0-105.0) fl MCH (25.0-35.0) pg MCHC (31.0-37.0) g/dl RDW (11.5-14.5) % Plt Count (120.0-450.0) 10^3/uL MPV (7.0-11.0) fl Gran % (50.0-68.0) % Lymph % (Auto) (22.0-35.0) % Dickey % (Auto) (1.0-6.0) % Eos % (Auto) (1.5-5.0) % Baso % (Auto) (0.0-3.0) % Gran # (1.4-6.5) Lymph # (Auto) (1.2-3.4) Dickey # (Auto) (0.1-0.6) Eos # (Auto) (0.0-0.7) Baso # (Auto) (0.0-2.0) K/mm3 APTT (25.1-36.5) Seconds Sodium (132-148) mmol/L Potassium (3.6-5.0) mmol/L Chloride (98-107) mmol/L Carbon Dioxide (21-33) mmol/L Anion Gap (10-20) BUN (7-21) mg/dL Creatinine (0.8-1.5) mg/dl Est GFR ( Amer) Est GFR (Non-Af Amer) POC Glucose (mg/dL) 146 H (65-110) mg/dL Random Glucose (70-110) mg/dL Hemoglobin A1c 6.5 (4.2-6.5) % Calcium (8.4-10.5) mg/dL Total Bilirubin (0.2-1.3) mg/dL AST (17-59) U/L ALT (7-56) U/L Alkaline Phosphatase (38-126) U/L Total Protein (5.8-8.3) g/dL Albumin (3.0-4.8) g/dL Globulin gm/dL Albumin/Globulin Ratio (1.1-1.8) TSH 3rd Generation (0.46-4.68) mIU/mL Laboratory Results - last 24 hr 10/08/18 10/08/18 10/08/18 06:30 11:29 13:20 WBC RBC Hgb Hct MCV MCH MCHC RDW Plt Count MPV Gran % Lymph % (Auto) Dickey % (Auto) Eos % (Auto) Baso % (Auto) Gran # Lymph # (Auto) Dickey # (Auto) Eos # (Auto) Baso # (Auto) APTT 26.7 Sodium Potassium Chloride Carbon Dioxide Anion Gap BUN Creatinine Est GFR ( Amer) Est GFR (Non-Af Amer) POC Glucose (mg/dL) 146 H Random Glucose Hemoglobin A1c 6.5 Calcium Total Bilirubin AST ALT Alkaline Phosphatase Total Protein Albumin Globulin Albumin/Globulin Ratio TSH 3rd Generation 10/08/18 10/08/18 10/09/18 16:17 22:16 05:40 WBC 5.6 D RBC 4.59 Hgb 13.0 L Hct 40.0 L MCV 87.1 MCH 28.3 MCHC 32.5 RDW 13.0 Plt Count 208 MPV 9.1 Gran % 56.8 Lymph % (Auto) 32.3 Dickey % (Auto) 7.7 H Eos % (Auto) 2.7 Baso % (Auto) 0.5 Gran # 3.18 Lymph # (Auto) 1.8 Dickey # (Auto) 0.4 Eos # (Auto) 0.2 Baso # (Auto) 0.03 APTT Sodium Potassium Chloride Carbon Dioxide Anion Gap BUN Creatinine Est GFR ( Amer) Est GFR (Non-Af Amer) POC Glucose (mg/dL) 121 H 136 H Random Glucose Hemoglobin A1c Calcium Total Bilirubin AST ALT Alkaline Phosphatase Total Protein Albumin Globulin Albumin/Globulin Ratio TSH 3rd Generation 10/09/18 10/09/18 10/09/18 05:40 05:40 05:40 WBC RBC Hgb Hct MCV MCH MCHC RDW Plt Count MPV Gran % Lymph % (Auto) Dickey % (Auto) Eos % (Auto) Baso % (Auto) Gran # Lymph # (Auto) Dickey # (Auto) Eos # (Auto) Baso # (Auto) APTT 29.1 Sodium 139 Potassium 3.8 Chloride 106 Carbon Dioxide 28 Anion Gap 8 L BUN 12 Creatinine 0.8 Est GFR ( Amer) > 60 Est GFR (Non-Af Amer) > 60 POC Glucose (mg/dL) Random Glucose 106 Hemoglobin A1c Calcium 8.9 Total Bilirubin 0.4 AST 26 ALT 30 Alkaline Phosphatase 50 Total Protein 6.6 Albumin 3.7 Globulin 3.0 Albumin/Globulin Ratio 1.2 TSH 3rd Generation 2.07 10/09/18 10/09/18 07:42 11:06 WBC RBC Hgb Hct MCV MCH MCHC RDW Plt Count MPV Gran % Lymph % (Auto) Dickey % (Auto) Eos % (Auto) Baso % (Auto) Gran # Lymph # (Auto) Dickey # (Auto) Eos # (Auto) Baso # (Auto) APTT Sodium Potassium Chloride Carbon Dioxide Anion Gap BUN Creatinine Est GFR ( Amer) Est GFR (Non-Af Amer) POC Glucose (mg/dL) 110 174 H Random Glucose Hemoglobin A1c Calcium Total Bilirubin AST ALT Alkaline Phosphatase Total Protein Albumin Globulin Albumin/Globulin Ratio TSH 3rd Generation Critical Care Progress Note - Nutrition Nutrition: Nutrition Category Date Time Status Heart Healthy Diet [DIET] Diets 10/08/18 Lunch Active Assessment/Plan - Assessment and Plan (Free Text) Assessment: Patient seen and examined on rounds with resident, agree with note with following additions/exceptions: Patient is 78yo male with PMHx SVT requiring cardioversion (08/2017), NIDM2, HTN, HLD, [place] 30 years ago, LE edema admitted with sustained Atrial Flutter, HR 150s, s/p Amio, Digoxin, and Verapamil, all of which failed to control HR, patient subsequently cardioverted yesterday with 1 Synchronized cardioversion shock of 100J after Versed 4mg IV x 1, and Fentanyl 50mcg IV x 1 given, patient converted to NSR HR 50s. Currently afebrile, BP stable,comfortable in NAD, doing well. Current HR 50s, Sinus jose Labs imaging, chart reviewed Troponin negative Atrial Flutter s/p Cardioversion NIDDM2 HTN HX CAD HLD Hx Smoking Recommend: - supp o2 as needed, duonebs PRN - NO ID issues - A/C Eliquis 5mg PO BID - ECHO - rate control, hold off for now given HR 50s - ASA, Statin - GI PPx - DVT ppx, ELiquis - Monitor on Tele
[2018-10-09 07:22] LABS: ALB/GLOB RATIO 1.2 (1.1-1.8); ALBUMIN 3.7 g/dL (3.0-4.8); ALT/SGPT 30 U/L (7-56); AST/SGOT 26 U/L (17-59); BLOOD UREA NITROGEN 12 mg/dL (7-21); CALCIUM 8.9 mg/dL (8.4-10.5); GFR NON-AFRICAN AMERICAN > 60
[2018-10-09] MEDS: Insulin Reg-MEDIUM-Coverage SC SCH ×4 (07:59→21:29)
[2018-10-09] MEDS ORDERED: Potassium Chloride 20 mEq ER Tab PO STA (08:14)
[2018-10-09] MEDS: POLYETHYLENE GLYCOL 3350 17 GM/Dose PACKET PO SCH ×2 (09:11→17:15)
--- NOTE | 2018-10-09 13:41 | PN ---
DATE: 10/09/2018 SUBJECTIVE: The patient is seen lying in bed in the ICU. He is comfortable. He remains in sinus rhythm. He denies any chest pain or dyspnea. MEDICATIONS: His current medications include aspirin, Eliquis 5 mg b.i.d. and insulin coverage. OBJECTIVE: GENERAL: He is an elderly man who appears comfortable at the present time. VITAL SIGNS: Blood pressure is 130/64, pulse of 56 in sinus, respirations are 14. He is afebrile. HEENT: No JVD. CHEST: Clear to auscultation and percussion. HEART: PMI displaced laterally with soft tones noted. ABDOMEN: Soft and nontender with normoactive bowel sounds. EXTREMITIES: No edema. DIAGNOSTIC DATA: Recent echocardiogram revealed severely reduced LV systolic function with apical dyskinesis and septal hypokinesis. Potassium 3.8, BUN and creatinine 12 and 0.8. White count 5.6, hemoglobin and hematocrit 13 and 40 with platelet count of 208,000. IMPRESSION: 1. Recent atrial flutter with a 2:1 conduction, successfully cardioverted, remains in sinus rhythm. 2. Severe left ventricle dysfunction with segmental wall motion abnormalities, should consider further evaluation. 3. History of hypertension, diabetes and hyperlipidemia. 4. Reported history of prior myocardial infarction. RECOMMENDATIONS: At this time Eliquis therapy will be continued for now. A discussion will need to be had with the patient and his family regarding the aggressiveness of additional cardiac workup at this time. They did have concerns regarding recurrence of his atrial flutter and possible role of ablation therapy. I believe the more important issue is his severe LV dysfunction. He remains somewhat bradycardic at least at rest. Additional beta-lb therapy will be held pending his heart rate response. In the interim, afterload reduction therapy with angiotensin receptor lb will be added for now. A transfer to telemetry and ambulation is advised. We will follow and make further recommendations as appropriate. Benjamin Rojas MD
--- NOTE | 2018-10-09 15:59 | PN ---
DATE: 10/09/2018 SUBJECTIVE: This 78-year-old male was examined in ICU bed #3 at the [facility] on the morning of 10/09/2018. His case was reviewed in detail with his nurse, Cecile, and the patient at bedside. He is status post cardioversion after conscious sedation under the direction of Dr. Benjamin Rojas from Cardiology. At present, he denies any fever, chills, chest pain or shortness of breath and is noted to be in a normal sinus rhythm on the monitoring engineer. PHYSICAL EXAMINATION: VITAL SIGNS: Temperature was 98.7, respirations 12, pulse 53 and blood pressure 129/64 with a pulse ox of 98% on nasal O2. HEENT: Head: Normocephalic, atraumatic. Eyes: No icterus. Ears: Clear. Throat: Noninjected. NECK: Supple. HEART: Regular S1, S2. No pathological rubs, murmurs or gallops. LUNGS: Clear. ABDOMEN: Soft. EXTREMITIES: No edema. SKIN: Without rash. NEUROLOGIC: He has evidence of parkinsonism. Deconditioned. VASCULAR: Legs warm to touch. PSYCHOLOGICAL: Alert and oriented x3. LABORATORY DATA: White count 5600, hemoglobin 13, hematocrit 40, platelets 208,000. PT/INR 0.92, PTT 29.1, D-dimer less than 200. Sodium 139, K 3.8, chloride 106, bicarb 28, BUN 12, creatinine 0.8, random blood sugar 174, calcium 8.9, magnesium 1.9. Bilirubin 0.4, AST 26, ALT 30 and alk phos 50. TSH normal 2.07. Echocardiography was reviewed. It shows left ventricle normal in size, normal wall thickness of left ventricle, left ventricle systolic function is severely impaired with an ejection fraction of 25% to 30% and a hypokinetic septum and a dyskinetic apex. There was no left ventricular thrombus noted on this study. The left atrium was mildly dilated with a measurement of 4.5 cm. EKG was reviewed. The patient previously was in atrial flutter with a 2:1 block on monitoring engineer, is now in normal sinus rhythm. IMPRESSION: This is an 78-year-old male with cardiomyopathy, admitted with atrial flutter and history of hyperlipidemia, stable atherosclerotic heart disease, congestive heart failure, cardiomyopathy, peptic ulcer disease with gastroesophageal reflux disease, type 2 diabetes mellitus and chronic hypertension. PLAN: Continue Ecotrin, Cozaar, Eliquis, Humulin R medium insulin coverage before meals and at bedtime and MiraLax. The patient needs to be monitored on the cardiac unit to ensure that he does not have another episode of paroxysmal supraventricular tachycardia. He will be ambulated. He continues on a heart-healthy diabetic diet, is scheduled for a repeat comprehensive metabolic panel, CBC and PTT level in the a.m. Based on clinical progress, additional diagnostic workup and testing will be entertained. Greater than 60 minutes was spent in the care management, review of labs, orders, x-rays, discussion of this case with himself at bedside as well as Dr. Benjamin Rojas from Cardiology and Nursing and manifold operator, Dr. Sean Akins. All questions were answered. Brianna Govea MD YARIEL
[2018-10-10 06:32] LABS: BASO # 0.03 K/mm3 (0.0-2.0); BASO % 0.5 % (0.0-3.0); EOS # 0.2 (0.0-0.7); EOS % 3.7 % (1.5-5.0); GRAN # 3.32 (1.4-6.5); GRAN % 55.6 % (50.0-68.0); HEMOGLOBIN 13.6 g/dL (14.0-18.0); LYMPH # 1.8 (1.2-3.4); LYMPH % 29.5 % (22.0-35.0); MEAN CELL VOLUME 86.3 fl (80.0-105.0); MEAN CORPUSCULAR HEMOGLOBIN 28.6 pg (25.0-35.0); MEAN CORPUSCULAR HGB CONC 33.2 g/dl (31.0-37.0); MONO # 0.6 (0.1-0.6); MONO % 10.7 % (1.0-6.0); RBC 4.75 10^6/uL (3.5-6.1); RED CELL DISTRIBUTION WIDTH 12.8 % (11.5-14.5)
[2018-10-10 07:20] LABS: ALB/GLOB RATIO 1.2 (1.1-1.8); ALBUMIN 3.8 g/dL (3.0-4.8); ALT/SGPT 26 U/L (7-56); AST/SGOT 45 U/L (17-59); BLOOD UREA NITROGEN 10 mg/dL (7-21); CALCIUM 9.1 mg/dL (8.4-10.5); GFR NON-AFRICAN AMERICAN > 60
[2018-10-10] MEDS: Insulin Reg-MEDIUM-Coverage SC SCH ×4 (08:43→22:00)
[2018-10-10] MEDS: POLYETHYLENE GLYCOL 3350 17 GM/Dose PACKET PO SCH ×2 (09:41→17:22)
--- NOTE | 2018-10-10 13:16 | PN ---
DATE: 10/10/2018 SUBJECTIVE: The patient is seen sitting in chair in the ICU. He is comfortable at the present time. He remains in sinus rhythm. CURRENT MEDICATIONS: Include aspirin, Cozaar 50 mg daily, Eliquis 5 mg twice a day and insulin coverage. OBJECTIVE: GENERAL: He is an elderly man who appears comfortable at rest. VITAL SIGNS: His blood pressure is 140/68 with a pulse of 60 and sinus respirations 14. He is afebrile. HEENT: No JVD. CHEST: Few scattered rhonchi. HEART: PMI displaced laterally with soft tones noted. ABDOMEN: Soft, nontender with bowel sounds. EXTREMITIES: No edema. DIAGNOSTIC DATA: Potassium 4.0, BUN and creatinine 10 and 0.7. White count 6.0, hemoglobin and hematocrit 13.6 and 41.0 with platelet count of 201,000. IMPRESSION: 1. Recent atrial flutter, cardioverted to sinus rhythm, remains so. 2. Severe left ventricular dysfunction with probable coronary disease and minute next history of hypertension, diabetes, hyperlipidemia. RECOMMENDATIONS: His current medications will continue for now. Beta-lb has not been resumed given his resting bradycardia and pravastatin and low-dose diuretic can be resumed as planned. Attempts were made to contact his family regarding his prior workup and if there is any prior knowledge of severe LV dysfunction is old records from his cardiac workup in [place] would be helpful and will be requested. Benjamin Rojas MD
--- NOTE | 2018-10-10 14:18 | PN ---
DATE: 10/10/2018 SUBJECTIVE: This 78-year-old male was examined at his bedside in the critical care unit at the [facility] on the morning of 10/10/2018. This case was reviewed with critical care nurse, Addie, and the patient at bedside. He underwent cardioversion for an atrial flutter, supraventricular tachycardia that was unresponsive to parenteral medication including IV Cardizem, IV Lopressor and IV verapamil. At present, he remains in a normal sinus rhythm and is denying any fever, chills, chest pain or shortness of breath. His speech is slow and his motion is also deconditioned in the setting of what appears to be parkinsonism. PHYSICAL EXAMINATION: VITAL SIGNS: Temperature was 98.6, respirations 16, pulse 60 and blood pressure 142/67. HEENT: Head: Normocephalic, atraumatic. Eyes: No icterus. Ears: Clear. Throat: Noninjected. NECK: Supple. HEART: Regular S1, S2. No pathological rubs, murmurs or gallops. LUNGS: Clear. ABDOMEN: Soft. EXTREMITIES: No edema. SKIN: Without rash. NEUROLOGICAL: Resting tremor and masked facies. Deconditioned. VASCULAR: Legs warm to touch. PSYCHOLOGICAL: Alert. LABORATORY DATA: White count 6000, hemoglobin 13.6, hematocrit 41, platelets 201,000. Sodium 139, K 4, chloride 105, bicarb 26, BUN 10, creatinine 0.7, random blood sugar 115, calcium 9.1. Bilirubin 0.4, AST 45, ALT 26, alk phos 54, albumin 3.2. IMPRESSION: An 78-year-old male with recent supraventricular tachycardia, atrial flutter, requiring cardioversion and comorbidities of atherosclerotic heart disease, stable, chronic hypertension, type 2 diabetes mellitus, peptic ulcer disease with gastroesophageal reflux disease, hyperlipidemia, obstipation and parkinsonism. PLAN: The patient will continue on Ecotrin 81 mg p.o. daily, Cozaar 50 mg p.o. daily, Eliquis 5 mg p.o. b.i.d., regular R medium dose insulin coverage before meals and at bedtime, Lasix 20 mg p.o. daily, MiraLax 17 g p.o. b.i.d., Sinemet 10-100 p.o. b.i.d. and the patient is being followed by Cardiology and will be transferred to the cardiac cannon for additional adjustment of medication and physical therapy. Greater than 60 minutes was spent in the care management, review of labs, orders and x-rays and discussion of this patient with himself, family, nursing and co-consultants. All questions were answered. Brianna Govea MD
[2018-10-11 06:32] LABS: BASO # 0.05 K/mm3 (0.0-2.0); BASO % 0.7 % (0.0-3.0); EOS # 0.3 (0.0-0.7); EOS % 3.5 % (1.5-5.0); GRAN # 3.9 (1.4-6.5); GRAN % 55.4 % (50.0-68.0); HEMOGLOBIN 13.3 g/dL (14.0-18.0); LYMPH # 2.2 (1.2-3.4); LYMPH % 30.8 % (22.0-35.0); MEAN CELL VOLUME 85.1 fl (80.0-105.0); MEAN CORPUSCULAR HEMOGLOBIN 28.4 pg (25.0-35.0); MEAN CORPUSCULAR HGB CONC 33.3 g/dl (31.0-37.0); MONO # 0.7 (0.1-0.6); MONO % 9.6 % (1.0-6.0); RBC 4.69 10^6/uL (3.5-6.1); WHITE BLOOD COUNT 7.1 10^3/uL (4.5-11.0)
[2018-10-11 06:57] LABS: ALB/GLOB RATIO 1.2 (1.1-1.8); ALBUMIN 3.8 g/dL (3.0-4.8); ALT/SGPT 24 U/L (7-56); AST/SGOT 27 U/L (17-59); BLOOD UREA NITROGEN 12 mg/dL (7-21); CALCIUM 9.1 mg/dL (8.4-10.5); GFR NON-AFRICAN AMERICAN > 60
[2018-10-11] MEDS: Insulin Reg-MEDIUM-Coverage SC SCH ×2 (08:13→11:58)
[2018-10-11] MEDS: POLYETHYLENE GLYCOL 3350 17 GM/Dose PACKET PO SCH (09:14)
[2018-10-11] MEDS ORDERED: PRAVASTATIN 20 MG PO SCH (10:00)
[2018-10-11] MEDS ORDERED: Furosemide 40 mg/5 mL Oral Soln UD PO SCH (10:00)
[2018-10-11 12:29] VITALS: BP 151/87; PULSE 68; RESP 21; O2SAT 96
[2018-10-11 12:30] VITALS: TEMP 97.5
--- NOTE | 2018-10-11 13:27 | PN ---
DATE: 10/11/2018 SUBJECTIVE: The patient is seen sitting in bed in the CCU. He remained in sinus rhythm. He is anxious to go home. He is seen in the presence of his daughter. I had reached out to the family yesterday to obtain more information regarding his prior cardiac workup and also discuss his current status. My phone call was not returned, but I did speak to his daughter at the bedside this morning. He feels well. He denies any chest pain. CURRENT MEDICATIONS: Include aspirin, Cozaar 50 mg daily, Eliquis 5 mg twice daily, insulin coverage, Lasix 20 mg daily and Sinemet 10/100 mg twice daily. OBJECTIVE: GENERAL: He is a healthy-appearing elderly man. VITAL SIGNS: Blood pressure is 114/60 with a pulse of 60 and sinus, respirations 16. He is afebrile. HEENT: No JVD. CHEST: Few scattered rhonchi. HEART: PMI displaced laterally with soft tones noted. ABDOMEN: Soft, nontender, normoactive bowel sounds. EXTREMITIES: No edema. DIAGNOSTIC DATA: Potassium 4.0, BUN and creatinine 12 and 0.7. White count 7.1, hemoglobin and hematocrit 13.3 and 39.9 with platelet count of 211,000. IMPRESSION: 1. Recent atrial flutter, successfully converted to a sinus rhythm and continues to remain in sinus rhythm. 2. Severe systolic dysfunction with evidence of segmental wall motion abnormalities suggestive of significant coronary disease. 3. History of hypertension, diabetes and hyperlipidemia. RECOMMENDATIONS: I had a lengthy discussion with the patient and his daughter at the bedside. I explained the implications of his abnormal left ventricular function and probable coronary disease with respect to his rhythm. Continued medical therapy appears reasonable at this time. Anticoagulant therapy for at least a short term is recommended. If he has recurrent atrial flutter, additional drug therapy can be planned and consideration could be given to a pacemaker implant to avoid excessive bradycardia in order to allow for additional antiarrhythmic therapy. The option of an ablation has been discussed with her as well, although at his age more conservative approach may be more prudent. With respect to his LV dysfunction and probable coronary disease, I recommended that he consider at least a nuclear stress test to screen for any residual of cardiac ischemia, it would not be unreasonable to perform an angiogram as well. However, both he and his daughter are strongly against that at the present time. The risks of undiagnosed significant cardiac and subclinical ischemia was discussed with them and the potential for recurrent infarct, congestive heart failure even sudden were presented. They will consider an outpatient stress test in the near future. At the present time, he is preferring to be discharged home in his current medical regimen and he is given prescriptions for Eliquis 5 mg twice daily, carvedilol 6.25 mg twice daily and losartan 50 mg daily in addition to his Lasix, pravastatin and metformin. He was advised to call with any recurrent palpitations. Outpatient followup will be arranged. All the above was discussed with nursing staff as well as Dr. Govea as well. Benjamin Rojas MD MTDD
--- NOTE | 2018-10-11 20:59 | DS ---
FINAL DIAGNOSES: Rapid atrial flutter, resolved supraventricular tachycardia, resolved. The patient required cardioversion, chronic hypertension, stable atherosclerotic heart disease, history of cardiomyopathy, type 2 diabetes mellitus, chronic hypertension, parkinsonism, history of peptic ulcer disease with gastroesophageal reflux disease. DISPOSITION: Home. The patient will follow up with his primary care physician in his [place] Medicare program listing. DISCHARGE MEDICATIONS: He is discharged on Ecotrin 81 mg p.o. daily, Cozaar 50 mg p.o. daily, Eliquis 5 mg p.o. b.i.d., Pravachol 20 mg p.o. at bedtime, Lasix 20 mg p.o. daily, Coreg 6.25 mg p.o. b.i.d. with metformin 500 mg p.o. daily. SUMMARY: This 78-year-old male presented to [facility] ER after a syncopal episode and was noted to be in SVT with rapid atrial flutter which did not convert with parenteral antiarrhythmic including IV Cardizem, IV verapamil or IV Lopressor. He underwent cardioversion under the direction of Dr. Benjamin Rojas from Cardiology and had medications adjusted at the time of discharge from ICU. His temperature was 97.9, respirations 20, pulse 65 and blood pressure 114/62 with a pulse ox of 96% on room air. I did review his 2-D echocardiogram with Dr. Rojas. It showed normal left ventricular size, but left ventricular function severely impaired with an ejection fraction of approximately 25% to 30%, and hypokinesia of his septum and dyskinetic apex. No left ventricular thrombus was noted. On the morning of discharge, I had a lengthy bedside discussion in ICU, bed #3 with his daughter, Cecilia Purcell. She was outlined his discharge instructions and medication and this was reviewed with her as well with Dr. Rojas, and she is aware that the patient will need close outpatient follow up within his HMO regarding all of the above issues as discussed with Dr. Rojas. It would be prudent to this patient to have a Lexiscan stress test in the near future when he is medically stabilized and the patient has been advised along with his daughter to return to [facility] ER for any change in signs and symptoms. His overall prognosis remains poor given his cardiomyopathy and multiple comorbidities and this was discussed with his daughter at bedside as well. It should be noted she was anxious for his discharge despite the fact that the patient had not yet been transferred to the cardiac unit telemetry for ambulation and she was insistent that he be discharged to the family supervision which was approved by Dr. Rojas from Cardiology. Greater than 60 minutes was spent in the discharge management of this patient today including reviewing of all of the above with his daughter and himself at bedside and outlining of medication instructions. Brianna Govea MD MTDLesly
== END 2018-10-11 13:24 | disposition home or self-care (01) | DRG 310 ==
LOC: EDBD → ED 22:20 → ERH 10-08 02:35 → ICU 10-08 04:21
PROVIDERS: ADMIT Internal Medicine; ATTEND Internal Medicine
DX: I48.92 Unspecified atrial flutter (principal); I47.1 Supraventricular tachycardia; I42.9 Cardiomyopathy, unspecified; I25.10 Atherosclerotic heart disease of native coronary artery without angina pectoris; G20 Parkinson's disease; I11.0 Hypertensive heart disease with heart failure; I50.9 Heart failure, unspecified; K21.9 Gastro-esophageal reflux disease without esophagitis; E11.9 Type 2 diabetes mellitus without complications; E78.5 Hyperlipidemia, unspecified; I25.2 Old myocardial infarction; Z79.84 Long term (current) use of oral hypoglycemic drugs; Z88.8 Allergy status to other drugs, medicaments and biological substances; Z87.11 Personal history of peptic ulcer disease; Z87.891 Personal history of nicotine dependence